=== PATIENT | female | born 1935 | race Caucasian/White ===

== ENCOUNTER → 2018-08-04 | Outpatient (CLI) | payer MEDICARE, BC, OTHER ==
--- NOTE | 2018-08-04 15:19 | BD ---
EXAMINATION TYPE: Axial Bone Density DATE OF EXAM: 08/04/2018 CLINICAL HISTORY: Osteopenia, M 85.9, Z 13.820 Height: 63 inches Weight: 142 FRAX RISK QUESTIONS: Alcohol (3 or more units per day): no Family History (Parent hip fracture): no Glucocorticoids (More than 3mos): no (Ex: prednisone, prednisolone, methylprednisolone, dexamethasone, and hydrocortisone). History of Fracture in Adulthood: no Secondary Osteoporosis: 1. Type 1 Diabetes: no 2. Hyperthyroidism: no 3. Menopause before 45: no 4. Malnutrition: no 5. Chronic liver disease: no Rheumatoid Arthritis: no Current Tobacco Use: no RISK FACTORS HISTORY OF: Family History of Osteoporosis: no Active: yes Diet low in dairy products/other sources of calcium: no Postmenopausal woman: yes Take estrogen and/or progesterone medications: no Lost more than 2 inches in height since high school: no Frequent falls: no Poor Health: no Hyperparathyroidism: no Adrenal Insufficiency: no MEDICATIONS: Prednisone or other steroids: no Thyroid Medications: no Osteoporosis Medications:no Additional Medications: heart meds, blood pressure ; vitamins Additional History: EXAM MEASUREMENTS: Bone mineral densitometry was performed using the [employer] System. Bone mineral density as measured about the Lumbar spine is: ----- L1-L4(G/cm2): 1.198 T Score Values are as follows: ----- L2: 0.3 ----- L3: 0.9 ----- L4: 0.4 ----- L1-L4: 0.1 Bone mineral density not previously done at this facility; done elsewhere Bone mineral density about the R hip (g/cm2): 0.816 Bone mineral density about the L hip (g/cm2): 0.840 T Score values are as follows: -----R Neck: -1.6 -----L Neck: -1.4 -----R Total: -1.0 -----L Total: -0.8 Bone mineral density not previously done at this facility; done elsewhere IMPRESSION: Osteopenia (T Score between -2.5 and -1). There is slightly increased risk of fracture and the patient may be considered for treatment. Re-Screen 2-5 years. NOTE: T-SCORE=SD OF THE YOUNG ADULT MEAN.
--- NOTE | 2018-08-06 13:25 | MM ---
Reason for exam: screening (asymptomatic). Last mammogram was performed 2 years and 2 months ago. History: Patient is postmenopausal. Physical Findings: A clinical breast exam by your physician is recommended on an annual basis and results should be correlated with mammographic findings. MG 3D Screening Mammo W/Cad Bilateral CC and MLO view(s) were taken. Prior study comparison: May 24, 2016, mammogram, performed at [facility]. January 24, 2015, mammogram, performed at [facility]. No significant changes when compared with prior studies. ASSESSMENT: Benign, BI-RAD 2 RECOMMENDATION: Routine screening mammogram of both breasts in 1 year.
== END | disposition home or self-care (01) ==
LOC: RADMAMWWP 13:06
PROVIDERS: ATTEND Obstetrics & Gynecology
DX: Z12.31 Encounter for screening mammogram for malignant neoplasm of breast (principal); M85.80 Other specified disorders of bone density and structure, unspecified site
CPT/HCPCS: 77063; 77067; 77080

== ENCOUNTER 2019-12-08 01:07 | Observation (INO) | payer MEDICARE, BC, OTHER ==
[2019-12-08] MEDS ORDERED: SODIUM CHLORIDE 0.9% 1,000 ML IV STA (01:33)
[2019-12-08] MEDS ORDERED: ASPIRIN 81 MG PO STA (01:33)
[2019-12-08] MEDS ORDERED: LABETALOL 5 MG/ML VIAL MDV IVP STA (01:47)
[2019-12-08 01:52] LABS: Basophils # (A) 0.1 k/uL (0-0.2); Basophils % (A) 2 %; Eosinophils # (A) 0.1 k/uL (0-0.7); Eosinophils % (A) 2 %; HCT 41.2 % (34.0-46.0); HGB 13.9 gm/dL (11.4-16.0); Lymphocytes # (A) 2.4 k/uL (1.0-4.8); Lymphocytes % (A) 36 %; MCH 31.9 pg (25.0-35.0); MCHC 33.7 g/dL (31.0-37.0); MCV 94.5 fL (80.0-100.0); Mean Platelet Volume 6.9; Monocytes # (A) 0.3 k/uL (0-1.0); Monocytes % (A) 5 %; Neutrophils # (A) 3.6 k/uL (1.3-7.7); Neutrophils % (A) 54 %; Platelet Count 271 k/uL (150-450); RBC 4.36 m/uL (3.80-5.40); RDW 12.5 % (11.5-15.5); WBC 6.7 k/uL (3.8-10.6)
--- NOTE | 2019-12-08 01:58 | ED ---
Chest Pain HPI - General Chief Complaint: Chest Pain Stated Complaint: Abd Pain Time Seen by Provider: 12/08/19 01:20 Source: patient, family, RN notes reviewed, old records reviewed Mode of arrival: ambulatory Limitations: physical limitation - History of Present Illness Initial Comments: This Patient is an 84-year-old female, who presents emergency Department with "a funny feeling in chest" intermittently for the past 2 days. Patient reports that it seems to be intermittent, denies any pain worse with taking a deep breath or associated shortness of breath. She states with rest and exertion she has had these symptosm and felt lightheaded. She denies any nausea or vomiting. Past medical history includes hypertension, liver disease and neurop athy. Patient's auto inspection specialist is Dr. Yost. Patient reports she has had some testing within the past year but unable to tell me exactly what tests she's had. She is here with her son-in-law. Patient reports that she did take her blood pressure medicine today but does arrive somewhat hypertensive blood pressure 180/97. She denies any headache, or significant dizziness at this time while in bed. - Related Data Home Medications Medication Instructions Recorded Confirmed Gabapentin [Neurontin] 100 mg PO TID 12/31/14 12/31/14 Losartan Potassium [Cozaar] 100 mg PO DAILY 12/31/14 12/31/14 Metoprolol Tartrate [Lopressor] 25 mg PO DAILY 12/31/14 12/31/14 cloNIDine HCL [Catapres] 0.1 mg PO BID 12/31/14 12/31/14 hydrALAZINE HCL 50 mg PO HS 12/31/14 12/31/14 hydrALAZINE HCL [Apresoline] 100 mg PO BID 12/31/14 12/31/14 Allergies Allergy/AdvReac Type Severity Reaction Status Date / Time No Known Allergies Allergy Verified 12/08/19 01:14 Review of Systems ROS Statement: Those systems with pertinent positive or pertinent negative responses have been documented in the HPI. ROS Other: All systems not noted in ROS Statement are negative. EKG Findings - EKG Comments: EKG Findings:: EKG performed at 1:21 AM shows normal sinus rhythm normal EKG. Ventricular rate of 70 bpm. Verbal 174 ms. QS zoroastrian is 88 ms. QT QTc is 44/[address] elevation or T-wave inversion. Past Medical History Past Medical History: Hypertension, Liver Disease Additional Past Medical History / Comment(s): neuropathy History of Any Multi-Drug Resistant Organisms: None Reported Past Surgical History: Orthopedic Surgery Additional Past Surgical History / Comment(s): bilateral knees Past Anesthesia/Blood Transfusion Reactions: No Reported Reaction Past Psychological History: No Psychological Hx Reported Smoking Status: Never smoker Past Alcohol Use History: None Reported Past Drug Use History: None Reported - Past Family History Mother Family Medical History: Myocardial Infarction ([place]) Additional Family Medical History / Comment(s): Pass d/t heart attack General Exam - General Exam Comments Initial Comments: 84-year-old female. Alert and oriented 3. Limitations: physical limitation General appearance: alert, in no apparent distress Head exam: Present: atraumatic, normocephalic, normal inspection Eye exam: Present: normal appearance ENT exam: Present: normal exam, mucous membranes moist Neck exam: Present: normal inspection. Absent: tenderness, meningismus, lymphadenopathy Respiratory exam: Present: normal lung sounds bilaterally. Absent: respiratory distress, wheezes, rales, rhonchi, stridor Cardiovascular Exam: Present: regular rate, normal rhythm, normal heart sounds. Absent: systolic murmur, diastolic murmur, rubs, gallop, clicks GI/Abdominal exam: Present: soft, normal bowel sounds. Absent: distended, tenderness, guarding, rebound, rigid Extremities exam: Present: normal inspection, full ROM, normal capillary refill. Absent: tenderness, pedal edema, joint swelling, calf tenderness Back exam: Present: normal inspection Neurological exam: Present: alert, oriented X3, CN II-XII intact Psychiatric exam: Present: normal affect, normal mood Skin exam: Present: warm, dry, intact, normal color. Absent: rash Course Vital Signs 12/08/19 12/08/19 12/08/19 01:10 01:48 02:09 Temperature 97.8 F Pulse Rate 86 66 68 Respiratory 18 18 18 Rate Blood Pressure 193/101 180/97 169/88 O2 Sat by Pulse 97 100 99 Oximetry 12/08/19 02:33 Temperature Pulse Rate 64 Respiratory 18 Rate Blood Pressure 162/87 O2 Sat by Pulse 97 Oximetry Chest Pain MDM - MDM 84-year-old female presents emergency room today with a "funny feeling in her chest, has been having symptoms for the past days intermittently with rest and exertion. Patient reports she's also been under stress after her . This time patient's EKG shows no acute changes. Troponin is unremarkable. She was quite hypertensive upon arrival and was given aspirin for her discomfort. She states that it still persisted, nitro was ordered as well. Patient did report some relief after this. Discussed the case with Dr. Mcneal discussed case with on-call sounds physician. Sledge the Patient for cardiac observation with consult to patient's auto inspection specialist Dr. Yost. Disposition Clinical Impression: Chest pain Disposition: ADMITTED IP TO THIS HOSP Condition: Stable Is patient prescribed a controlled substance at d/c from ED?: No Referrals: Nonstaff,Physician [REFERRING] - 1-2 days Time of Disposition: 03:28
[2019-12-08 02:02] LABS: Albumin 4.3 g/dL (3.5-5.0); Calcium 9.5 mg/dL (8.4-10.2); Magnesium 1.8 mg/dL (1.6-2.3); Potassium 3.9 mmol/L (3.5-5.1); Total Protein 7.2 g/dL (6.3-8.2)
[2019-12-08 02:06] LABS: Partial Thromboplastin Time 33.4 sec (22.0-30.0); Prothrombin Time 10.8 sec (9.0-12.0)
--- NOTE | 2019-12-08 02:24 | XR ---
EXAMINATION TYPE: XR chest 2V DATE OF EXAM: 12/08/2019 COMPARISON: 12/31/2014 HISTORY: Hypertension. Chest pain TECHNIQUE: 2 views FINDINGS: There is no heart failure nor confluent pneumonic infiltrate. Costophrenic angles are clear . There are chest leads. Bony thorax appears normal. Thoracic aorta is atheromatous and tortuous. IMPRESSION: No active cardiopulmonary disease. No change.
[2019-12-08] MEDS ORDERED: NITROGLYCERIN SL TABS 0.4 MG TAB SUBLINGUAL STA (03:22)
[2019-12-08] MEDS ORDERED: NITROGLYCERIN SL TABS 0.4 MG TAB SUBLINGUAL PRN (03:29)
[2019-12-08] MEDS ORDERED: MORPHINE SULFATE 4 MG/ML SYRINGE IV PRN (03:29)
--- NOTE | 2019-12-08 05:48 | P.HPIM ---
History of Present Illness H&P Date: 12/08/19 Chief Complaint: Chest pain The patient is a 84-year-old female with a past medical history of essential hypertension, liver disease, neuropathy who presents to the ER via private vehicle with her son-in-law complaining of a funny feeling in her chest. The patient describes nonradiating moderate substernal chest tightness that has been intermittent for the last 2 days, she associates her symptoms with exertion and has had episodes of lightheadedness, she denies headache, denies focal weakness denies slurred speech denies facial droop, she denies any diaphoresis, denies syncope. The patient reports that at her baseline she is able to ambulate unassisted but has difficulty walking a straight line, son-in-law mentions episodes of disorientation and forgetfulness as a patient has left the stove on at times, they deny any history of dementia or regular alcohol use. In the ER the patient had a comprehensive workup her CBC was normal electrolytes were unremarkable with exception of slightly elevated BUN at 21, troponin was less than 0.012 NT proBNP 297, EKG shows sinus mechanism without any acute ischemic changes, chest x-ray showed no acute cardiopulmonary disease and the patient and recommended for admission to rule out ACS Review of Systems Pertinent positives per HPI all other review of systems otherwise negative Past Medical History Past Medical History: Hypertension, Liver Disease Additional Past Medical History / Comment(s): neuropathy History of Any Multi-Drug Resistant Organisms: None Reported Past Surgical History: Orthopedic Surgery Additional Past Surgical History / Comment(s): bilateral knees Past Anesthesia/Blood Transfusion Reactions: No Reported Reaction Past Psychological History: No Psychological Hx Reported Smoking Status: Never smoker Past Alcohol Use History: None Reported Past Drug Use History: None Reported - Past Family History Mother Family Medical History: Myocardial Infarction ([place]) Additional Family Medical History / Comment(s): Pass d/t heart attack Medications and Allergies Home Medications Medication Instructions Recorded Confirmed Type Gabapentin [Neurontin] 100 mg PO TID 12/31/14 12/31/14 History Losartan Potassium [Cozaar] 100 mg PO DAILY 12/31/14 12/31/14 History Metoprolol Tartrate [Lopressor] 25 mg PO DAILY 12/31/14 12/31/14 History cloNIDine HCL [Catapres] 0.1 mg PO BID 12/31/14 12/31/14 History hydrALAZINE HCL 50 mg PO HS 12/31/14 12/31/14 History hydrALAZINE HCL [Apresoline] 100 mg PO BID 12/31/14 12/31/14 History Allergies Allergy/AdvReac Type Severity Reaction Status Date / Time No Known Allergies Allergy Verified 12/08/19 01:14 Physical Exam Vitals: Vital Signs Temp Pulse Resp BP Pulse Ox 12/08/19 04:00 65 16 143/87 97 12/08/19 03:36 164/92 12/08/19 03:29 66 16 166/103 97 12/08/19 02:33 64 18 162/87 97 12/08/19 02:09 68 18 169/88 99 12/08/19 01:48 66 18 180/97 100 12/08/19 01:10 97.8 F 86 18 193/101 97 Intake and Output 12/07/19 12/07/19 12/08/19 14:59 22:59 06:59 Other: Weight 66.406 kg Constitutional: No acute distress, conversant, pleasant Eyes: Anicteric sclerae, moist conjunctiva, no lid-lag, PERRLA ENMT: NC/AT,Oropharynx clear, no erythema, exudates Neck:Supple, FROM, no masses, or JVD, No carotid bruits; No thyromegaly Lungs: Clear to auscultation, Clear to percussion, Normal respiratory effort, no accessory muscle use Cardiovascular: Heart regular in rate and rhythm, No murmurs, gallops, or rubs no peripheral edema Abdominal: Soft Nontender, nom distended, no guarding, no rebound or rigidity, Normoactive bowel sounds No hepatomegaly, No splenomegaly, No palpable mass No abdominal wall hernia noted Skin: Normal temperature, tone, texture, turgor, No induration No subcutaneous nodules, No rash, lesions, No ulcers Extremities:No digital cyanosis No clubbing, Pedal pulses intact and symmetrical Radial pulses intact and symmetrical Normal gait and station, No calf tenderness Psychiatric: Alert and oriented to person, place and time, Appropriate affect Intact judgement Neuro: Muscles Strength 5/5 in all 4 extremities, Sensation to light touch grossly present throughout, Cranial nerves II-XII grossly intact. No focal sensory deficits Results CBC & Chem 7: 12/08/19 01:40 01/22/20 01:40 Labs: Abnormal Lab Results - Last 24 Hours (Table) 12/08/19 12/08/19 Range/Units 01:40 01:40 APTT 33.4 H (22.0-30.0) sec BUN 21 H (7-17) mg/dL Assessment and Plan Assessment: Chest pain uncontrolled hypertension Neuropathy History of autoimmune hepatitis Plan: The patient patient observation anticipated less than 2 midnight stay with chest pain with need to rule out ACS initial workup so far as been negative will continue to trend her troponins, order echocardiogram, tsh, monitor on threat monitoring analyst her blood pressure. continue chest pain protocol patient was given aspirin and IV labetalol for blood pressure along with nitroglycerin. Awaiting to reconcile her medications will use hydralazine PRN. Cardiology consultation. Continue to monitor clinical course CODE STATUS: Full code Anticipated discharge place: Home Prophylaxis : Heparin and SCDs and PPIs
[2019-12-08] MEDS ORDERED: hydrALAZINE HCL 20 MG/ML 1 ML VIAL IVP PRN (06:00)
[2019-12-08] MEDS ORDERED: hydrALAZINE HCL 50 MG TAB PO SCH (09:00)
[2019-12-08] MEDS ORDERED: cloNIDine HCL 0.1 MG TAB PO SCH (09:00)
[2019-12-08] MEDS: LOSARTAN 50 MG TAB PO SCH (09:49)
[2019-12-08] MEDS: PANTOPRAZOLE 40 MG TABLET PO SCH (09:50)
[2019-12-08] MEDS: HEPARIN SODIUM,PORCINE 5,000 UNIT/ML 1 ML VIAL SQ SCH ×2 (09:51→20:58)
[2019-12-08] MEDS ORDERED: cloNIDine HCL 0.1 MG TAB PO STA (10:32)
[2019-12-08] MEDS ORDERED: HYDROCHLOROTHIAZIDE 12.5 MG CAP PO SCH ×2 (10:45)
--- NOTE | 2019-12-08 10:45 | P.CRDCN ---
History of Present Illness History of present illness: HISTORY OF PRESENTING ILLNESS This is a pleasant 84-year-old female past medical history significant for hypertension. She follows in the office with Dr. Yost. We have been asked to see in consultation for chest pain. She states for the previous 2 days she has been experiencing intermittent discomfort in the chest. She states it is a squeezing tight sensation. It is exacerbated by activity or exertion. She states she has been under significant amount of stress in the previous 2 days as her furnace is not working properly and she has also been stressing out about having to do her taxes. She lost her last year and this will be the first year she's having to do this all by herself. She denies radiation of any pain to the arm, back, neck or jaw. She denies any associated shortness of breath, dizziness, nausea, vomiting, diaphoresis or palpitations. Blood pressure on arrival is 193/101 with a heart rate of 86. She has struggled with her blood pressure quite frequently however she states her blood pressures at home are typically well-controlled. DIAGNOSTICS EKG reveals sinus mechanism with no acute ST or T wave abnormalities noted. Telemetry tracings unremarkable. Chest xray negative for an acute cardiopulmonary process. Laboratory reviewed, CBC unremarkable, sodium 138, potassium 3.9, creatinine 0.82, cardiac enzymes negative 2, NT proBNP 297 and TSH 4.34. Current cardiac medications include hydralazine 100 mg in the morning and 150 mg at bedtime, clonidine 0.1 mg daily, extra 25 mg daily, losartan 100 mg daily and hydrochlorothiazide on Friday and Friday. Most recent stress test performed in the office April 2019 with a Lexiscan stress test revealing ejection fraction of 60% with no reversible ischemia. Most recent echocardiogram obtained in the office January 2018 reveals preserved LV systolic function with ejection fraction 55%, moderate diastolic dysfunction and mildly elevated PA pressures. REVIEW OF SYSTEMS At the time of my exam: CONSTITUTIONAL: Denies fever or chills. CARDIOVASCULAR: Denies chest pain, shortness of breath, orthopnea, PND or palpitations. RESPIRATORY: Denies cough. GASTROINTESTINAL: Denies abdominal pain, diarrhea, constipation, nausea or vomiting. MUSCULOSKELETAL: Denies myalgias. NEUROLOGIC: Denies numbness, tingling or weakness. ENDOCRINE: Denies fatigue, weight change, polydipsia or polyurina. GENITOURINARY: Denies burning, hematuria or urgency with micturation. HEMATOLOGIC: Denies history of anemia or bleeding. PHYSICAL EXAMINATION Blood pressure 167/95 heart rate 64 afebrile and maintaining oxygen saturation on room air. CONSTITUTIONAL: No apparent distress. HEENT: Head is normocephalic. Pupils are equal, round. Sclerae anicteric. Mucous membranes of the mouth are moist. No JVD. No carotid bruit. CHEST EXAMINATION: Lungs are clear to auscultation. No chest wall tenderness is noted on palpation or with deep breathing. HEART EXAMINATION: Regular rate and rhythm. S1, S2 heard. No murmurs, gallops or rub. ABDOMEN: Soft, nontender. Positive bowel sounds. EXTREMITIES: 2+ peripheral pulses, no lower extremity edema and no calf tenderness. NEUROLOGIC EXAMINATION: Patient is awake, alert and oriented x3. ASSESSMENT Chest pain, atypical. An acute coronary event has been ruled out. Hypertension, uncontrolled PLAN An acute coronary event has been ruled out. Home medication list differs from office medications list that was just updated 11/02/2019. Increase clonidine to 0.2 mg BID. Hydralazine should be 100 mg TID, losartan 100 mg daily and hydrochlorothiazide 12.5 mg MWF. Medications list has been updated appropriately. Continue to monitor blood pressures on appropriate regimen. Echo has been ordered and will be reviewed. Thank you kindly for this consultation. Nurse Practitioner note has been reviewed, I agree with a documented findings and plan of care. Patient was seen and examined. Past Medical History Past Medical History: Hypertension, Liver Disease Additional Past Medical History / Comment(s): neuropathy History of Any Multi-Drug Resistant Organisms: None Reported Past Surgical History: Orthopedic Surgery Additional Past Surgical History / Comment(s): bilateral knees Past Anesthesia/Blood Transfusion Reactions: No Reported Reaction Past Psychological History: No Psychological Hx Reported Smoking Status: Never smoker Past Alcohol Use History: None Reported Past Drug Use History: None Reported - Past Family History Mother Family Medical History: Myocardial Infarction ([place]) Additional Family Medical History / Comment(s): Pass d/t heart attack Medications and Allergies Home Medications Medication Instructions Recorded Confirmed Type Losartan Potassium [Cozaar] 100 mg PO DAILY 12/31/14 12/08/19 History Metoprolol Tartrate [Lopressor] 25 mg PO DAILY 12/31/14 12/08/19 History cloNIDine HCL [Catapres] 0.1 mg PO DAILY 12/31/14 12/08/19 History hydrALAZINE HCL 50 mg PO HS 12/31/14 12/08/19 History hydrALAZINE HCL [Apresoline] 100 mg PO BID 12/31/14 12/08/19 History Hydrochlorothiazide 12.5 mg PO MOWEFR 12/08/19 12/08/19 History Allergies Allergy/AdvReac Type Severity Reaction Status Date / Time No Known Allergies Allergy Verified 12/08/19 08:24 Physical Exam Vitals: Vital Signs Temp Pulse Pulse Resp BP BP Pulse Ox 12/08/19 06:35 64 18 12/08/19 05:45 97.8 F 64 18 167/95 96 12/08/19 05:20 63 20 97 12/08/19 05:10 64 13 98 12/08/19 05:05 66 18 150/85 96 12/08/19 05:00 71 16 150/85 98 12/08/19 04:50 66 18 150/85 97 12/08/19 04:40 63 12 150/85 97 12/08/19 04:30 62 16 143/87 96 12/08/19 04:20 60 16 143/87 97 12/08/19 04:10 61 16 143/87 97 12/08/19 04:00 63 16 164/92 96 12/08/19 03:50 64 13 164/92 95 12/08/19 03:40 75 13 164/92 97 12/08/19 03:36 164/92 12/08/19 03:30 61 16 166/103 96 12/08/19 03:29 66 16 166/103 97 12/08/19 03:20 64 18 12/08/19 03:00 181/92 12/08/19 02:50 67 16 162/87 12/08/19 02:40 68 12 162/87 98 12/08/19 02:33 64 18 162/87 97 12/08/19 02:30 62 18 169/88 97 12/08/19 02:20 61 16 169/88 98 12/08/19 02:10 66 12 169/88 98 12/08/19 02:09 68 18 169/88 99 12/08/19 02:00 65 16 180/97 97 12/08/19 01:50 70 16 180/97 01/22/20 01:48 66 18 180/97 100 12/08/19 01:40 69 14 184/96 100 12/08/19 01:30 79 22 184/96 99 12/08/19 01:20 99 12/08/19 01:10 97.8 F 86 18 193/101 97 Intake and Output 12/07/19 12/08/19 12/08/19 22:59 06:59 14:59 Other: # Voids 1 Weight 66.406 kg Results 12/08/19 01:40 12/08/19 01:40 Cardiac Enzymes 12/08/19 12/08/19 Range/Units 01:40 01:40 AST 35 (14-36) U/L Troponin I <0.012 (0.000-0.034) ng/mL Coagulation 12/08/19 Range/Units 01:40 PT 10.8 (9.0-12.0) sec APTT 33.4 H (22.0-30.0) sec CBC 12/08/19 Range/Units 01:40 WBC 6.7 (3.8-10.6) k/uL RBC 4.36 (3.80-5.40) m/uL Hgb 13.9 (11.4-16.0) gm/dL Hct 41.2 (34.0-46.0) % Plt Count 271 (150-450) k/uL Comprehensive Metabolic Panel 12/08/19 Range/Units 01:40 Sodium 138 (137-145) mmol/L Potassium 3.9 (3.5-5.1) mmol/L Chloride 103 (98-107) mmol/L Carbon Dioxide 24 (22-30) mmol/L BUN 21 H (7-17) mg/dL Creatinine 0.82 (0.52-1.04) mg/dL Glucose 99 (74-99) mg/dL Calcium 9.5 (8.4-10.2) mg/dL AST 35 (14-36) U/L ALT 15 (4-34) U/L Alkaline Phosphatase 74 (38-126) U/L Total Protein 7.2 (6.3-8.2) g/dL Albumin 4.3 (3.5-5.0) g/dL Current Medications Generic Name Dose Route Start Last Admin Trade Name Freq PRN Reason Stop Dose Admin Aspirin 325 mg 01/23/20 09:00 Aspirin PO DAILY [facility] Heparin Sodium (Porcine) 5,000 unit 12/08/19 09:00 Heparin SQ Q12HR [facility] Morphine Sulfate 4 mg 12/08/19 03:29 Morphine Sulfate (Inj) IV Q5M PRN Chest Pain Nitroglycerin 0.4 mg 12/08/19 03:29 Nitrostat SUBLINGUAL Q5M PRN Chest Pain Pantoprazole Sodium 40 mg 12/08/19 07:30 Protonix PO AC-BRKFST [facility] Intake and Output 12/07/19 12/08/19 12/08/19 22:59 06:59 14:59 Other: # Voids 1 Weight 66.406 kg 12/08/19 01:40 12/08/19 01:40
[2019-12-08 11:07] LABS: Cholesterol 192 mg/dL (<200); HDL Cholesterol 50 mg/dL (40-60); LDL Cholesterol,Calculated 125 mg/dL (0-99); Triglycerides 87 mg/dL (<150)
[2019-12-08] MEDS: METOPROLOL TARTRATE 25 MG TAB PO SCH (11:18)
--- NOTE | 2019-12-08 11:48 | ECHOF ---
Referral Reason:chest pain MEASUREMENTS -------- HEIGHT: 160.0 cm WEIGHT: 66.2 kg BP: 167/95 RVIDd: 2.9 cm (< 3.3) IVSd: 1.1 cm (0.6 - 1.1) LVIDd: 3.8 cm (3.9 - 5.3) LVPWd: 1.3 cm (0.6 - 1.1) IVSs: 1.2 cm LVIDs: 2.9 cm LVPWs: 1.5 cm LA Diam: 4.4 cm (2.7 - 3.8) LAESV Index (A-L): 33.23 ml/m Ao Diam: 2.8 cm (2.0 - 3.7) AV Cusp: 1.4 cm (1.5 - 2.6) LA Diam: 3.6 cm (2.7 - 3.8) MV EXCURSION: 19.436 mm (> 18.000) MV EF SLOPE: 71 mm/s (70 - 150) EPSS: 0.2 cm MV E Prince: 0.52 m/s MV DecT: 206 ms MV A Prince: 0.69 m/s MV E/A Ratio: 0.76 RAP: 5.00 mmHg RVSP: 32.48 mmHg FINDINGS -------- Sinus rhythm. This was a technically good study. The left ventricular size is normal. There is mild concentric left ventricular hypertrophy. Overa ll left ventricular systolic function is normal with, an EF between 55 - 60 %. The diastolic fillin g pattern is normal for the age of the patient 10.88. The right ventricle is normal in size. The left atrium is mildly dilated. LA is midly dilated 29-33ml/m2. The right atrial size is normal. There is mild aortic valve sclerosis. There is no evidence of aortic regurgitation. Mild mitral annular calcification present. Mild mitral regurgitation is present. Mild tricuspid regurgitation present. Right ventricular systolic pressure is normal at < 35 mmHg. There is no evidence of pulmonary hypertension. There is no pulmonic regurgitation present. The aortic root size is normal. Echo free space represents a pericardial fat pad. CONCLUSIONS -------- 1. Sinus rhythm. 2. This was a technically good study. 3. The left ventricular size is normal. 4. There is mild concentric left ventricular hypertrophy. 5. Overall left ventricular systolic function is normal with, an EF between 55 - 60 %. 6. The diastolic filling pattern is normal for the age of the patient 10.88 7. The right ventricle is normal in size. 8. The left atrium is mildly dilated. 9. LA is midly dilated 29-33ml/m2. 10. The right atrial size is normal. 11. There is mild aortic valve sclerosis. 12. Mild mitral annular calcification present. 13. Mild mitral regurgitation is present. 14. Mild tricuspid regurgitation present. 15. Right ventricular systolic pressure is normal at < 35 mmHg. 16. There is no evidence of pulmonary hypertension. 17. There is no pulmonic regurgitation present. 18. The aortic root size is normal. 19. Echo free space represents a pericardial fat pad. RESOURCE COORDINATOR: Amanda Ngo RDCS
--- NOTE | 2019-12-08 12:27 | P.PN ---
Subjective Progress Note Date: 12/08/19 The patient is an 84-year-old female with a PMH of hypertension who presented to the ED with complaints of a strange sensation in her chest, occurring intermittently, tightening in nature, no unable to quantify. The patient reported that the pain was ongoing for 2 days prior to presentation. The patient reported that she has been having quite a bit of stress this year since her 8 months, and she feels that the anxiety of all of the paperwork associated with it and increased work work around the house may have been contributing to her symptoms. The patient had undergone an extensive evaluation in the emergency room with a troponin of less than 0.012, BNP of 297, EKG showing normal sinus rhythm at [address]/T-wave changes noted, and CXR being unremarkable. The patient was admitted under observation for evaluation by cardiology. The patient underwent an echocardiogram which revealed an LVEF of 55-60% along with mild mitral regurgitation. Cardiology evaluated the patient and noted that an acute coronary event had been ruled out. Cardiology also made adjustments to the patient's antihypertensives since there were discrepencies between her home med-list and the patient's list from the Network Infrastructure Architect's office. The patient was seen and evaluated at the bedside on 12/08. She reported feeling well and noted that she no longer has her chest discomfort or any additional symptoms. She reports feeling is that she is back to her baseline. She denied shortness of breath, nausea, vomiting, fever, chills, or abdominal pain. Objective - Vital Signs Vital signs: Vital Signs Temp 97.6 F 12/08/19 11:13 Pulse 67 12/08/19 12:00 Resp 14 12/08/19 12:00 BP 116/69 12/08/19 11:13 Pulse Ox 96 12/08/19 11:13 Intake & Output 12/07/19 12/08/19 12/08/19 18:59 06:59 18:59 Weight 66.406 kg Other: Voiding Method Toilet # Voids 1 1 - Exam General: Non-toxic, in no acute distress, appears stated age, normal weight HEENT: NC/AT, anicteric sclerae, moist conjunctiva, no lid-lag, PERRLA Cardiovascular: S1/S2 wnl, no murmurs, rubs, or gallops Lungs: Clear to auscultation, normal respiratory effort, no accessory muscle use Abdominal: Soft, non-tender, non-distended, no guarding, rebound, or rigidity Skin: Warm, dry Extremities: No edema or contractures Psychiatric: Alert and oriented to person, place and time, appropriate affect Neuro: CN II-XII grossly intact, Strength 5/5 in all 4 extremities, Speech intact, Sensation to light touch grossly intact throughout - Labs CBC & Chem 7: 12/08/19 01:40 12/08/19 01:40 Labs: Abnormal Lab Results - Last 24 Hours (Table) 12/08/19 12/08/19 12/08/19 Range/Units 01:40 01:40 01:40 APTT 33.4 H (22.0-30.0) sec BUN 21 H (7-17) mg/dL LDL Cholesterol, Calc 125 H (0-99) mg/dL Assessment and Plan Plan: Atypical chest pain -Acute coronary event ruled out -Cardiology recommendations appreciated -Echocardiogram reviewed, troponins negative 3 Hypertension -Patient's antihypertensives with major adjustments by cardiology -The patient's blood pressure dropped from 190s on admission to 116 systolic ea rlier today -Continue to monitor the patient for another 24 hours Chronic conditions: Neuropathy; Auto-immune hepatitis DVT prophylaxis -IPCDs Discussed with: Patient Anticipated discharge date: 12/[address]: Home A total of 35 minutes was spent on the care of this complex patient more than 50% of the time was spent in counseling and care coordination.
[2019-12-08] MEDS: hydrALAZINE HCL 50 MG TAB PO SCH ×3 (16:39→21:03)
[2019-12-08] MEDS ORDERED: cloNIDine HCL 0.2 MG TAB PO SCH (21:00)
[2019-12-08] MEDS ORDERED: ACETAMINOPHEN TAB 325 MG TAB PO PRN (22:59)
[2019-12-09 07:52] VITALS: RESP 18
[2019-12-09] MEDS: HEPARIN SODIUM,PORCINE 5,000 UNIT/ML 1 ML VIAL SQ SCH (08:32)
[2019-12-09] MEDS: PANTOPRAZOLE 40 MG TABLET PO SCH (08:59)
[2019-12-09] MEDS ORDERED: ASPIRIN 325 MG TAB PO SCH (09:00)
[2019-12-09] MEDS ORDERED: ASPIRIN 81 MG PO SCH (09:00)
[2019-12-09] MEDS: hydrALAZINE HCL 50 MG TAB PO SCH (09:01)
[2019-12-09] MEDS: METOPROLOL TARTRATE 25 MG TAB PO SCH (09:02)
[2019-12-09] MEDS: LOSARTAN 50 MG TAB PO SCH (09:02)
--- NOTE | 2019-12-09 10:23 | P.DS ---
Providers Date of admission: 12/08/19 04:18 Expected date of discharge: 12/09/19 Attending physician: Henri Lorenzo MD Consults: 12/08/19 03:29 Consult Physician Urgent Consulting Provider: Daja Yost Consult Reason/Comments: chest pain Do you want consulting provider notified?: Yes Primary care physician: [facility] Course: The patient is an 84-year-old female with a PMH of hypertension who presented to the ED with complaints of a strange sensation in her chest, occurring intermittently, tightening in nature, no unable to quantify. The patient reported that the pain was ongoing for 2 days prior to presentation. The patient reported that she has been having quite a bit of stress this year since her 8 months, and she feels that the anxiety of all of the paperwork associated with it and increased work work around the house may have been contributing to her symptoms. The patient had undergone an extensive evaluation in the emergency room with a troponin of less than 0.012, BNP of 297, EKG showing normal sinus rhythm at [address]/T-wave changes noted, and CXR being unremarkable. The patient was admitted under observation for evaluation by cardiology. The patient underwent an echocardiogram which revealed an LVEF of 55-60% along with mild mitral regurgitation. Cardiology evaluated the patient and noted that an acute coronary event had been ruled out. Cardiology also made adjustments to the patient's antihypertensives since there were discrepencies between her home med-list and the patient's list from the C ardiologist's office. Troponins were less than 0.0123 with EKG showing normal sinus rhythm. Cardiology adjusted her antihypertensive medication to clonidine 0.2 mg by mouth twice a day, hydralazine 100 mg by mouth 3 times a day, losartan 100 mg by mouth daily, hydrochlorothiazide 12.5 mg by mouth Friday and Friday. Clonidine was discontinued by cardiology prior to discharge. Blood p ressure was monitored overnight and blood pressure on discharge was 122/79. Patient was seen and examined. No acute events overnight. Patient denies any chest pain, shortness breath or palpitations. No nausea or vomiting. No fever or chills. Son-in-law at bedside. Son-in-law states that his [id number] at times forgets to take her medication and he is requesting a list of her medications in order to make sure that she is taking them. General: [non toxic], [no distress], [appears at stated age] Derm: [warm], [dry] Head: [atraumatic], [normocephalic], [symmetric] Eyes: [EOMI], [no lid lag], [anicteric sclera] Mouth: [no lip lesion], [mucus membranes moist] Cardiovascular: [S1S2 reg], [no murmur], [positive DP pulse bilateral], Lungs: [CTA bilateral], [no rhonchi, no rales] , [no accessory muscle use] Abdominal: [soft], [ nontender to palpation], [no guarding], [no appreciable organomegaly] Ext: [no gross muscle atrophy], [no edema], [no contractures] Neuro: [no focal neuro deficits] Psych: [Alert], [oriented], [appropriate affect] Atypical chest pain Hypertension Dyslipidemia ACS ruled out. Echocardiogram shows EF 55-60% with mild concentric LVH. Plans: Continue aspirin. Will start Lipitor. Resume beta lisa. Follow cardiology in the outpatient setting. BP this morning 122/79. Plans: Clonidine discontinued. Continue hydralazine, hydrochlorothiazide, losartan, metoprolol. Monitor vitals, adjust medications as necessary. LDL 125. Plans: We'll start low-dose Lipitor. [Patient admitted for chest pain. ACS ruled out. Blood pressure within normal limits. Chest pain-free this morning. Plans to DC home with follow-up cardiology within 1 week.] Pertinent Studies: Chest x-ray, echocardiogram Patient Condition at Discharge: Stable Plan - Discharge Summary Discharge Rx Participant: No New Discharge Prescriptions: New Aspirin 81 mg PO DAILY #30 chew Losartan [Cozaar] 100 mg PO DAILY #30 tab Hydrochlorothiazide [Hydrodiuril] 12.5 mg PO MOWEFR #12 cap Atorvastatin Calcium [Lipitor] 10 mg PO HS #30 tab Metoprolol Tartrate [Lopressor] 25 mg PO DAILY #30 tab hydrALAZINE HCL [Apresoline] 100 mg PO TID #90 tab Discontinued hydrALAZINE HCL [Apresoline] 100 mg PO BID cloNIDine HCL [Catapres] 0.1 mg PO DAILY Metoprolol Tartrate [Lopressor] 25 mg PO DAILY Losartan Potassium [Cozaar] 100 mg PO DAILY hydrALAZINE HCL 50 mg PO HS Hydrochlorothiazide 12.5 mg PO MOWEFR Discharge Medication List Aspirin 81 mg PO DAILY #30 chew 12/09/19 [Rx] Atorvastatin Calcium [Lipitor] 10 mg PO HS #30 tab 12/09/19 [Rx] Hydrochlorothiazide [Hydrodiuril] 12.5 mg PO MOWEFR #12 cap 12/09/19 [Rx] Losartan [Cozaar] 100 mg PO DAILY #30 tab 12/09/19 [Rx] Metoprolol Tartrate [Lopressor] 25 mg PO DAILY #30 tab 12/09/19 [Rx] hydrALAZINE HCL [Apresoline] 100 mg PO TID #90 tab 12/09/19 [Rx] Follow up Appointment(s)/Referral(s): Nonstaff,Physician [REFERRING] - 1-2 days Jovana Rainey MD [STAFF PHYSICIAN] - 1 Week Activity/Diet/Wound Care/Special Instructions: Diet: Low-salt Follow-up PCP within 3 days of discharge. Follow-up cardiology within 1 week of discharge. Please take all medications as advised. Come back to the ED or call 911 for worsening chest pain, shortness of breath, palpitations or dizziness. Discharge Disposition: HOME SELF-CARE
[2019-12-09 11:10] VITALS: BP 150/80; PULSE 64; TEMP 97.7
--- NOTE | 2019-12-09 12:20 | P.PN ---
Subjective HISTORY OF PRESENTING ILLNESS This is a pleasant 84-year-old female past medical history significant for hypertension. She follows in the office with Dr. Yost. She is seen and examined sitting up in bed in no acute distress. She denies any further symptoms of chest pain. She has been up ambulating in the halls with some assistance as she feels somewhat off balance. Blood pressures have been controlled on current regimen. Clonidine and hydrochlorothiazide were held yesterday. This morning reading was 122/79 and repeat at 1100 was 150/80. PHYSICAL EXAMINATION CONSTITUTIONAL: No apparent distress. HEENT: Head is normocephalic. Pupils are equal, round. Sclerae anicteric. Mucous membranes of the mouth are moist. No JVD. No carotid bruit. CHEST EXAMINATION: Lungs are clear to auscultation. No chest wall tenderness is noted on palpation or with deep breathing. HEART EXAMINATION: Regular rate and rhythm. S1, S2 heard. No murmurs, gallops or rub. EXTREMITIES: 2+ peripheral pulses, no lower extremity edema and no calf tendern ess. ASSESSMENT Chest pain, atypical. An acute coronary event has been ruled out. Hypertension, uncontrolled PLAN Recommend PT/OT evaluation and possible home care assistance with visiting nurse to assist with setting up medications and checking blood pressures at home. Stable for discharge from a cardiac perspective. Follow up with Dr. Yost in 2 weeks. Nurse Practitioner note has been reviewed, I agree with a documented findings and plan of care. Patient was seen and examined. Objective - Vital Signs Vital signs: Vital Signs Temp 97.7 F 12/09/19 11:08 Pulse 64 12/09/19 11:08 Resp 18 12/09/19 11:08 BP 150/80 12/09/19 11:08 Pulse Ox 97 12/09/19 11:08 Intake & Output 12/08/19 12/09/19 12/09/19 18:59 06:59 18:59 Intake Total 240 Balance 240 Intake: Oral 240 Other: Voiding Method Toilet Toilet Toilet # Voids 4 1 - Labs CBC & Chem 7: 12/08/19 01:40 12/08/19 01:40
[2019-12-10] MEDS ORDERED: HYDROCHLOROTHIAZIDE 12.5 MG CAP PO SCH (10:45)
== END 2019-12-09 13:20 | disposition home or self-care (01) ==
LOC: EC 01:07 → 1SOBS 04:18
PROVIDERS: ADMIT Family Medicine; ATTEND Family Medicine
DX: R07.89 Other chest pain (principal); I10 Essential (primary) hypertension; E78.5 Hyperlipidemia, unspecified; I08.3 Combined rheumatic disorders of mitral, aortic and tricuspid valves; G62.9 Polyneuropathy, unspecified; K75.4 Autoimmune hepatitis; Z79.899 Other long term (current) drug therapy; Z98.890 Other specified postprocedural states; Z82.49 Family history of ischemic heart disease and other diseases of the circulatory system
CPT/HCPCS: 96360; 96361; 99285; 36415; 93005; 93306; 97162; 97166; 92523; 83880; 80061; 80053; 84443; 82150; 83690; 83735; 84484; 85025; 85610; 85730; 71046; G0378 ×2

== ENCOUNTER → 2021-08-08 | Outpatient (CLI) | payer MEDICARE, BC, OTHER ==
--- NOTE | 2021-08-08 15:23 | US ---
EXAMINATION TYPE: US carotid duplex BILAT DATE OF EXAM: 08/08/2021 COMPARISON: NONE CLINICAL HISTORY: 86-year-old female R09.89 CAROTID BRUIT. TECHNIQUE: Carotid duplex ultrasound examination. Indirect Doppler criteria was utilized. FINDINGS: EXAM MEASUREMENTS: RIGHT: Peak Systolic Velocity (PSV) cm/sec ----- Right CCA: 89.5 ----- Right ICA: 76.3 ----- Right ECA: 76.2 ICA/CCA ratio: 0.9 RIGHT: End Diastole cm/sec ----- Right CCA: 21.2 ----- Right ICA: 25.8 ----- Right ECA: 8.9 LEFT: Peak Systolic Velocity (PSV) cm/sec ----- Left CCA: 77.9 ----- Left ICA: 101.6 ----- Left ECA: 56.6 ICA/CCA ratio: 1.3 LEFT: End Diastole cm/sec ----- Left CCA: 17.5 ----- Left ICA: 32.1 ----- Left ECA: 9.5 VERTEBRALS (direction of flow): Right Vertebral: Antegrade Left Vertebral: Antegrade Rhythm: Normal Employee Benefits Manager notes: Bilateral [id number] atherosclerotic plaque seen in bulbs. No significant s tenosis seen IMPRESSION: No hemodynamically significant internal carotid artery stenosis on either side. Criteria for Assigning % of Stenosis / Diameter reduction (Estimation based on the indirect measurements of the internal carotid artery velocities (ICA PSV). 1. Normal (no stenosis)=ICA PSV < 125 cm/s: ratio < 2.0: ICA EDV<40 cm/s. 2. Less than 50% stenosis=ICA PSV < 125 cm/s: ratio < 2.0: ICA EDV<40 cm/s. 3. 50 to 69% stenosis=ICA PSV of 125 to 230 cm/s: ration 2.0 ? 4.0: ICA EDV 40-100 cm/s. 4. Greater than 70% stenosis to near occlusion= ICA PSV > 230 cm/s: ratio > 4.0: ICA EDV > 100 cm/s. 5. Near occlusion= ICA PSV velocities may be low or undetectable: variable ratio and ICA EDV. 6. Total occlusion=unable to detect flow.
--- NOTE | 2021-08-09 12:16 | ECHOF ---
Referral Reason: MEASUREMENTS -------- HEIGHT: 165.1 cm WEIGHT: 63.5 kg BP: RVIDd: 3.2 cm (< 3.3) IVSd: 1.2 cm (0.6 - 1.1) LVIDd: 4.1 cm (3.9 - 5.3) LVPWd: 1.3 cm (0.6 - 1.1) IVSs: 1.6 cm LVIDs: 2.9 cm LVPWs: 1.6 cm LAESV Index (A-L): 27.37 ml/m Ao Diam: 2.8 cm (2.0 - 3.7) AV Cusp: 1.6 cm (1.5 - 2.6) LA Diam: 3.6 cm (2.7 - 3.8) MV EXCURSION: 16.074 mm (> 18.000) MV EF SLOPE: 92 mm/s (70 - 150) EPSS: 0.5 cm MV E Prince: 0.81 m/s MV DecT: 230 ms MV A Prince: 1.07 m/s MV E/A Ratio: 0.76 RAP: 5.00 mmHg RVSP: 35.25 mmHg FINDINGS -------- Sinus rhythm. This was a technically adequate study. The left ventricular size is normal. There is mild concentric left ventricular hypertrophy. Overa ll left ventricular systolic function is normal with, an EF between 55 - 60 %. The diastolic fillin g pattern is normal for the age of the patient 15.64. The right ventricle is normal in size. Normal LA size by volume 22+/-6 ml/m2. The right atrial size is normal. Interatrial and interventricular septum intact. Aortic valve is trileaflet and is mildly thickened. There is no evidence of aortic regurgitation. There is no evidence of aortic stenosis. Mild mitral annular calcification present. Mild mitral regurgitation is present. The tricuspid valve appears structurally normal. Mild tricuspid regurgitation present. There is m ild pulmonary hypertension. The right ventricular systolic pressure, as measured by Doppler, is 35. 25mmHg. There is no pulmonic regurgitation present. The aortic root size is normal. Normal inferior vena cava with normal inspiratory collapse consistent with estimated right atrial pre ssure of 5 mmHg. There is no pericardial effusion. CONCLUSIONS -------- 1. There is mild concentric left ventricular hypertrophy. 2. Overall left ventricular systolic function is normal with, an EF between 55 - 60 %. 3. Normal LA size by volume 22+/-6 ml/m2. 4. Aortic valve is trileaflet and is mildly thickened. 5. Mild mitral regurgitation is present. 6. Mild tricuspid regurgitation present. 7. There is mild pulmonary hypertension. FRAMING MACHINE TENDER: Bronwyn Jorge RDCS
== END | disposition home or self-care (01) ==
LOC: RADUSWWP 10:48
PROVIDERS: ATTEND Family Medicine
DX: R09.89 Other specified symptoms and signs involving the circulatory and respiratory systems (principal); I08.8 Other rheumatic multiple valve diseases; I27.20 Pulmonary hypertension, unspecified
CPT/HCPCS: 93306; 93880

== ENCOUNTER 2021-10-03 07:52 | Emergency (ER) | payer MEDICARE, BC, OTHER ==
[2021-10-03 08:05] VITALS: RESP 18; TEMP 98.3
--- NOTE | 2021-10-03 08:36 | ED ---
General Adult HPI - General Chief complaint: Headache Stated complaint: Ringing in ears Time Seen by Provider: 10/03/21 08:11 Source: patient, family Mode of arrival: wheelchair Limitations: no limitations - History of Present Illness Initial comments: Dictation was produced using [employer] dictation software. please excuse any grammatical, word or spelling errors. Chief Complaint: 86-year-old female presents emergency department for chief complaint of ringing in her ears. History of Present Illness: Patient is an 86-year-old female she has past medical history of hypertension, dyslipidemia patient presents to the emergency department for episodic ringing in her ears. She went to the [facility] approximately one week ago and was evaluated for the same complaint. She states she is here today because the ringing in her ears is happening. She states that it only happens at night when she lays down. She states the ringing goes across her head. Denies any symptoms currently at this point. She has not seen her primary care doctor regarding this. Nausea vomiting. No abdominal pain or chest pain. No shortness of breath. No recent changes in her medications. She has seen an ENT physician several years ago. Denies any ear pain. No dizziness. The ROS documented in this emergency department record has been reviewed and confirmed by me. Those systems with pertinent positive or negative responses have been documented in the HPI. All other systems are other negative and/or noncontributory. PHYSICAL EXAM: General Impression: Alert and oriented x3, not in acute distress HEENT: Normocephalic atraumatic, extra-ocular movements intact, pupils equal and reactive to light bilaterally, mucous membranes moist, normal TMs bilaterally Cardiovascular: Heart regular rate and rhythm Chest: Able to complete full sentences, no retractions, no tachypnea Abdomen: abdomen soft, non-tender, non-distended, no organomegaly Musculoskeletal: Pulses present and equal in all extremities, no peripheral edema Motor: no focal deficits noted Neurological: CN II-XII grossly intact, no focal motor or sensory deficits noted Skin: Intact with no visualized rashes Psych: Normal affect and mood ED course: 86-year-old female presents to the emergency department for several weeks of tinnitus. Vital signs upon arrival are within acceptable limits. Patient does not have any neurologic deficits. Laboratory evaluation obtained. CBC unremarkable. Metabolic panel is negative. Computed tomography scan of the brain shows no acute processes. Patient reevaluated at the bedside at 9:10 AM found to be stable medical condition. She still endorses no symptoms at this time. Patient advised to follow-up with primary care physician or ENT specialist. She is given referral. She has seen Dr. Krishna and Dr. Swartz in the past for another complaint per she is advised to follow with one of them. EKG interpretation: Ventricular rate 66, normal sinus rhythm, LA interval 186, QRS 82, QTC 427. No LA prolongation, no QTC prolongation, no ST or T-wave changes noted. Overall, this EKG is unremarkable - Related Data Previous Rx's Medication Instructions Recorded Aspirin 81 mg PO DAILY #30 chew 12/09/19 Atorvastatin Calcium [Lipitor] 10 mg PO HS #30 tab 12/09/19 Losartan [Cozaar] 100 mg PO DAILY #30 tab 12/09/19 Metoprolol Tartrate [Lopressor] 25 mg PO DAILY #30 tab 12/09/19 hydrALAZINE HCL [Apresoline] 100 mg PO TID #90 tab 12/09/19 hydroCHLOROthiazide [Hydrodiuril] 12.5 mg PO MOWEFR #12 cap 12/09/19 Allergies Allergy/AdvReac Type Severity Reaction Status Date / Time No Known Allergies Allergy Verified 10/03/21 08:05 Review of Systems ROS Statement: Those systems with pertinent positive or pertinent negative responses have been documented in the HPI. ROS Other: All systems not noted in ROS Statement are negative. Past Medical History Past Medical History: Hypertension, Liver Disease Additional Past Medical History / Comment(s): neuropathy History of Any Multi-Drug Resistant Organisms: None Reported Past Surgical History: Orthopedic Surgery Additional Past Surgical History / Comment(s): bilateral knees Past Anesthesia/Blood Transfusion Reactions: No Reported Reaction Past Psychological History: No Psychological Hx Reported Smoking Status: Never smoker Past Alcohol Use History: None Reported Past Drug Use History: None Reported - Past Family History Mother Family Medical History: Myocardial Infarction (SD) Additional Family Medical History / Comment(s): Pass d/t heart attack General Exam Limitations: no limitations Course Vital Signs 10/03/21 10/03/21 07:57 08:22 Temperature 98.3 F Pulse Rate 73 62 Pulse Rate [ 60 Scrap Baler ] Respiratory 18 18 Rate Blood Pressure 195/81 166/78 O2 Sat by Pulse 97 97 Oximetry Medical Decision Making - Lab Data Result diagrams: 10/03/21 08:34 10/03/21 08:34 Lab Results 10/03/21 10/03/21 Range/Units 08:34 08:34 WBC 5.5 (3.8-10.6) k/uL RBC 4.19 (3.80-5.40) m/uL Hgb 13.6 (11.4-16.0) gm/dL Hct 40.2 (34.0-46.0) % MCV 95.9 (80.0-100.0) fL MCH 32.4 (25.0-35.0) pg MCHC 33.7 (31.0-37.0) g/dL RDW 12.4 (11.5-15.5) % Plt Count 295 (150-450) k/uL MPV 7.1 Neutrophils % 64 % Lymphocytes % 26 % Monocytes % 6 % Eosinophils % 2 % Basophils % 1 % Neutrophils # 3.5 (1.3-7.7) k/uL Lymphocytes # 1.4 (1.0-4.8) k/uL Monocytes # 0.3 (0-1.0) k/uL Eosinophils # 0.1 (0-0.7) k/uL Basophils # 0.1 (0-0.2) k/uL Sodium 137 (137-145) mmol/L Potassium 3.9 (3.5-5.1) mmol/L Chloride 105 (98-107) mmol/L Carbon Dioxide 23 (22-30) mmol/L Anion Gap 9 mmol/L BUN 18 H (7-17) mg/dL Creatinine 0.76 (0.52-1.04) mg/dL Est GFR (CKD-EPI)AfAm 83 (>60 ml/min/1.73 sqM) Est GFR (CKD-EPI)NonAf 72 (>60 ml/min/1.73 sqM) Glucose 106 H (74-99) mg/dL Calcium 9.5 (8.4-10.2) mg/dL Disposition Clinical Impression: Tinnitus Disposition: HOME SELF-CARE Condition: Good Instructions (If sedation given, give patient instructions): Tinnitus (ED) Is patient prescribed a controlled substance at d/c from ED?: No Referrals: Emily Fan MD [Primary Care Provider] - 1-2 days Esau Krishna DO [Doctor of Osteopathic Medicine] - 1-2 days Kumar Swartz MD [STAFF PHYSICIAN] - 1-2 days
[2021-10-03 08:41] LABS: Basophils # (A) 0.1 k/uL (0-0.2); Basophils % (A) 1 %; Eosinophils # (A) 0.1 k/uL (0-0.7); Eosinophils % (A) 2 %; HCT 40.2 % (34.0-46.0); HGB 13.6 gm/dL (11.4-16.0); Lymphocytes # (A) 1.4 k/uL (1.0-4.8); Lymphocytes % (A) 26 %; MCH 32.4 pg (25.0-35.0); MCHC 33.7 g/dL (31.0-37.0); MCV 95.9 fL (80.0-100.0); Mean Platelet Volume 7.1; Monocytes # (A) 0.3 k/uL (0-1.0); Monocytes % (A) 6 %; Neutrophils # (A) 3.5 k/uL (1.3-7.7); Neutrophils % (A) 64 %; Platelet Count 295 k/uL (150-450); RBC 4.19 m/uL (3.80-5.40); RDW 12.4 % (11.5-15.5); WBC 5.5 k/uL (3.8-10.6)
--- NOTE | 2021-10-03 08:57 | CT ---
EXAMINATION TYPE: CT brain wo con DATE OF EXAM: 10/03/2021 HISTORY: ringing in ears, tinnitus. CT DLP: 1051.4 mGycm. Automated Exposure Control for Dose Reduction was Utilized. TECHNIQUE: CT scan of the head is performed without contrast. COMPARISON: None. FINDINGS: There is no acute intracranial hemorrhage or midline shift identified. There is mild diff use ventricular and sulcal prominence consistent with diffuse age-related cerebral atrophy. There is moderate low-attenuation in the deep and periventricular white matter consistent with chronic small vessel ischemic change in patient of this age. The globes are intact and the visualized sinuses are clear. No suspicious opacification of the mastoid air cells. Mild to moderate calcified plaque dist al internal carotid arteries bilaterally is present. IMPRESSION: No acute intracranial hemorrhage or midline shift. There is mild diffuse age-related ce rebral atrophy and moderate chronic small vessel ischemic change noted. Source of tinnitus is not id entified.
[2021-10-03 09:03] LABS: Calcium 9.5 mg/dL (8.4-10.2); Potassium 3.9 mmol/L (3.5-5.1)
[2021-10-03 09:29] VITALS: BP 140/72; PULSE 60
== END 2021-10-03 09:28 | disposition home or self-care (01) ==
LOC: EC 07:52
DX: H93.13 Tinnitus, bilateral (principal); I10 Essential (primary) hypertension; E78.5 Hyperlipidemia, unspecified; Z79.82 Long term (current) use of aspirin
CPT/HCPCS: 36415; 70450; 80048; 85025; 99284

== ENCOUNTER → 2022-07-27 | Outpatient (CLI) | payer MEDICARE, OTHER ==
--- NOTE | 2022-07-27 08:04 | CT ---
EXAMINATION TYPE: CT brain wo con CT DLP: 1012.7 mGycm, Automated exposure control for dose reduction was used. DATE OF EXAM: 07/27/2022 7:46 AM COMPARISON: 10/03/2021. CLINICAL INDICATION:Female, 87 years old with history of R41.3 AMNESIA, Amnesia, per family patient f agustin memory test TECHNIQUE: Brain: Axial CT images of the brain were obtained with coronal and sagittal reformats created and rev iewed. Contrast used: None. Oral contrast used: None. FINDINGS: Brain: Extra-axial spaces: No abnormal extra-axial fluid collections. Ventricular system: Within normal limits Cerebral parenchyma: No acute intraparenchymal hemorrhage or mass effect. The carcamo-white junction is well differentiated. Scattered hypoattenuating areas are seen within the white matter. Cerebellum: Unremarkable. Mass effect: No evidence of midline shift. Intracranial vasculature: unremarkable Soft tissues: Normal. Calvarium/osseous structures: No depressed skull fracture. Paranasal sinuses and mastoid air cells: Mild scattered paranasal sinus disease. Visualized orbits: Bilateral aphakia IMPRESSION: 1. No acute intracranial process. 2. Nonspecific white matter changes, likely secondary to chronic small vessel ischemic disease.
== END | disposition home or self-care (01) ==
LOC: RADCTMAIN 06:59
PROVIDERS: ATTEND Internal Medicine
DX: R41.3 Other amnesia (principal)
CPT/HCPCS: 70450

== ENCOUNTER 2023-01-30 13:14 | Inpatient (IN) | payer MEDICARE, OTHER ==
--- NOTE | 2023-01-30 13:42 | ED ---
General Adult HPI - General Source: patient, family, RN notes reviewed Mode of arrival: ambulatory Limitations: altered mental status <Moe Ball - Last Filed: 01/30/23 13:40> - General Source: patient, family, RN notes reviewed, old records reviewed <Scot Davis - Last Filed: 01/30/23 20:15> - General Stated complaint: AMS Time Seen by Provider: 01/30/23 13:40 - History of Present Illness Initial comments: 87-year-old female brought in emergency from via private vehicle with family for evaluation of altered mental status. Patient reportedly saw stranger in her apartment that was not there. They're unclear she is taking her medication. Patient's found to be hypertensive and does have multiple blood pressure medications. Patient has no physical complaints. Patient states she otherwise feels fine. Reportedly is abnormal behavior started yesterday. (Moe Ball) Patient is an 87-year-old female with past medical history remarkable for hypertension, liver disease, possible dementia per family presents emergency Department with hypertension, as well as some increased confusion. Patient has been having what the daughter describes as altered mental status. States she was told by the patient today that she is seeing a strange lady in her apartment. Patient lives alone. She believes it is hallucinations. Patient has been more forgetful lately and also has been getting the patient's son's name wrong. This is been ongoing for multiple weeks to months. Patient does live alone. Unknown if she is taking her medications. Presents hypertensive, with the high blood pressure I saw of systolics in the 220s. Highest documented is 212/119. Patient presents for further evaluation at this time. (Steven Davis) - Related Data Home Medications Medication Instructions Recorded Confirmed Atorvastatin [Lipitor] 40 mg PO HS 01/30/23 01/30/23 Losartan Potassium [Cozaar] 100 mg PO DAILY 01/30/23 01/30/23 Metoprolol Tartrate [Lopressor] 25 mg PO DAILY 01/30/23 01/30/23 cloNIDine HCL 0.1 mg PO BID 01/30/23 01/30/23 hydrALAZINE HCL [Apresoline] 50 mg PO BID 01/30/23 01/30/23 Previous Rx's Medication Instructions Recorded Metoprolol Tartrate [Lopressor] 25 mg PO DAILY #30 tab 12/09/19 Allergies Allergy/AdvReac Type Severity Reaction Status Date / Time No Known Allergies Allergy Verified 01/30/23 17:55 Review of Systems ROS Other: All systems not noted in ROS Statement are negative. <Moe Ball - Last Filed: 01/30/23 13:40> ROS Other: All systems not noted in ROS Statement are negative. <Scot Davis - Last Filed: 01/30/23 20:15> ROS Statement: Those systems with pertinent positive or pertinent negative responses have been documented in the HPI. Review of Systems: CONST: Denies fever EYES: Denies blurry vision ENT: Denies nasal congestion C/V: Denies Chest pain RESP: Denies shortness of breath GI: Denies abdominal pain : Denies dysuria SKIN: Denies rash. MSK: Denies joint pain. NEURO: Denies headache (Scot Davis) Past Medical History Past Medical History: Hypertension, Liver Disease Additional Past Medical History / Comment(s): neuropathy History of Any Multi-Drug Resistant Organisms: None Reported Past Surgical History: Orthopedic Surgery Additional Past Surgical History / Comment(s): bilateral knees Past Anesthesia/Blood Transfusion Reactions: No Reported Reaction Past Psychological History: No Psychological Hx Reported Smoking Status: Never smoker Past Alcohol Use History: None Reported Past Drug Use History: None Reported - Past Family History Mother Family Medical History: Myocardial Infarction (MA) Additional Family Medical History / Comment(s): Pass d/t heart attack <Moe Ball - Last Filed: 01/30/23 13:40> General Exam <Moe Ball - Last Filed: 01/30/23 13:40> <Scot Davis - Last Filed: 01/30/23 20:15> - General Exam Comments Initial Comments: Visual Physical Exam Vital signs reviewed General: Well-appearing, nontoxic, no acute distress. Head: Normocephalic, atraumatic Eyes: PERRLA, EOMI ENT: Airway patent Chest: Nonlabored breathing Skin: No visual rash, normal skin tone Neuro: Alert and oriented 3 Musculoskeletal: No gross abnormalities (Moe Ball) General: Appears in no acute distress. HEAD: Normal with no signs of head trauma. EYES: PERRLA, EOMI, conjunctiva normal, no discharge. Pupils are 3 mm equal bilaterally. ENT: Hearing grossly intact, normal oropharynx. RESPIRATORY: Clear breath sounds bilaterally. No wheezes, rales, or rhonchi. C/V: Regular rate and rhythm. S1 and S2 auscultated, no edema, peripheral pulses 2+ and intact throughout. patient's hypertensive. ABD: Abd is soft, nontender, nondistended EXT: Normal range of motion, no obvious deformity SKIN: No rashes or lesions observed on exposed skin. NEURO: Alert and oriented 2-3. Some confusion with time, which patient's daughter states is been an ongoing thing. NIH is otherwise 0. GCS is 15. No other acute neurological findings. (Scot Davis) Course Vital Signs 01/30/23 01/30/23 01/30/23 13:36 15:41 16:45 Temperature 98.9 F Pulse Rate 70 67 67 Respiratory 16 16 18 Rate Blood Pressure 212/119 211/106 184/82 O2 Sat by Pulse 96 98 97 Oximetry 01/30/23 18:56 Temperature Pulse Rate 80 Respiratory Rate Blood Pressure 190/101 O2 Sat by Pulse 96 Oximetry Medical Decision Making - Lab Data Result diagrams: 01/30/23 15:13 01/30/23 16:28 - EKG Data -: EKG Interpreted by Me <Scot Davis - Last Filed: 01/30/23 20:15> - Medical Decision Making Was pt. sent in by a medical professional or institution ([facility], [facility], urgent care, hospital, or [place] [facility] facility...) When possible be specific @ -No Did you speak to anyone other than the patient for history (EMS, parent, family, police, friend...)? What history was obtained from this source @ -Yes, patient's daughter who presents at bedside and provides most of the history. Did you review nursing and triage notes (agree or disagree)? Why? @ -I reviewed and agree with nursing and triage notes Were old charts reviewed (outside hosp., previous admission, EMS record, old EKG, old radiological studies, urgent care reports/EKG's, [place] [facility] facility records)? Report findings @ -No old charts were reviewed Differential Diagnosis (chest pain, altered mental status, abdominal pain women, abdominal pain men, vaginal bleeding, weakness, fever, dyspnea, syncope, headache, dizziness, GI bleed, back pain, seizure, CVA, palpatations, mental health, musculoskeletal)? @ -Hypertensive encephalopathy, progressive dementia, infection, intracranial injury, intracranial bleed. This list is not all inclusive. EKG interpreted by me (3pts min.). @ -As above X-rays interpreted by me (1pt min.). @ -Chest x-ray reveals no acute cardiopulmonary process that is obvious. CT interpreted by me (1pt min.). @ -CT brain reveals no obvious acute intracranial process or injury. U/S interpreted by me (1pt. min.). @ -None done What testing was considered but not performed or refused? (CT, X-rays, U/S, labs)? Why? @ -None What meds were considered but not given or refused? Why? @ -None Did you discuss the management of the patient with other professionals (professionals i.e. , PA, [facility], lab, RT, psych nurse, nursing home social worker, marketing administrator, teacher, liaison officer, top case assembler)? Give summary @ -No Was smoking cessation discussed for >3mins.? @ -No Was critical care preformed (if so, how long)? @ -No Were there social determinants of health that impacted care today? How? (Homelessness, low income, unemployed, alcoholism, drug addiction, transportation, low edu. Level, literacy, decrease access to med. care, [facility], rehab)? @ -No Was there de-escalation of care discussed even if they declined (Discuss DNR or withdrawal of care, Hospice)? DNR status @ -No What co-morbidities impacted this encounter? (DM, HTN, Smoking, COPD, CAD, Cancer, CVA, ARF, Chemo, Hep., AIDS, mental health diagnosis, sleep apnea, morb id obesity)? @ -History of hypertension Was patient admitted / discharged? Hospital course, mention meds given and route, prescriptions, significant lab abnormalities, going to OR and other pertinent info. @ -Based on the patient's presentation and physical exam, there is a concern for her new somewhat confusion. Seems to be having some hallucinations at home. I do believe it is likely secondary to progressive dementia versus possible h ypertensive encephalopathy. Patient has no other acute complaints at this time. Unknown if she is compliant with her home hypertensive medications. She denies any acute complaints at this time. We'll obtain cardiopulmonary and, as well as a CT brain and symptomatically treat her hypertension with IV hydralazine. Patient was in agreement this plan. Patient's daughter was also in agreement with this plan. Vital signs other than the hypertension are within acceptable limits. EKG showed no signs of acute ischemia. Chest x-ray unremarkable. CT brain unremarkable. Laboratory studies are within acceptable limits except for his findings of a possible early UTI. I did discuss the findings with the patient as well as her daughter. Patient's blood pressure did improve following hydralazine administration, decreasing from 220 systolic to 170s to 180s systolic. We will restart her home blood pressure medications, I would like to admit her to the hospital as well. They were in agreement this plan. She was started on Rocephin for her UTI. Neurology was consulted for her confusion w hich is likely secondary to progressive dementia. I did discuss the case with the admitting physician Dr. Ruiz who was in agreement with this plan. Undiagnosed new problem with uncertain prognosis? @ -No Drug Therapy requiring intensive monitoring for toxicity (Heparin, Nitro, Insulin, Cardizem)? @ -No Were any procedures done? @ -No Diagnosis/symptom? @ -Uncontrolled hypertension Acute, or Chronic, or Acute on Chronic? @ -Acute Uncomplicated (without systemic symptoms) or Complicated (systemic symptoms)? @ -Complicated Side effects of treatment? @ -No Exacerbation, Progression, or Severe Exacerbation? @ -No Poses a threat to life or bodily function? How? (Chest pain, [place], MA, pneumonia, PE, COPD, DKA, ARF, appy, cholecystitis, CVA, Diverticulitis, Homicidal, Suicid al, threat to staff... and all critical care pts) @ -potentially, if untreated can result in significant morbidity and mortality. Diagnosis/symptom? @ -Confusion, I suspect progressive dementia Acute, or Chronic, or Acute on Chronic? @ -Acute Uncomplicated (without systemic symptoms) or Complicated (systemic symptoms)? @ -Uncomplicated Side effects of treatment? @ -none Exacerbation, Progression, or Severe Exacerbation] @ -no Poses a threat to life or bodily function? @ -no Diagnosis/symptom? @ -HPI Acute, or Chronic, or Acute on Chronic? @ -Acute Uncomplicated (without systemic symptoms) or Complicated (systemic symptoms)? @ -Uncomplicated Side effects of treatment? @ -none Exacerbation, Progression, or Severe Exacerbation] @ -no Poses a threat to life or bodily function? @ -Potentially, if untreated can result in significant morbidity and mortality. (Scot Davis) - Lab Data Lab Results 01/30/23 01/30/23 01/30/23 Range/Units 15:13 15:13 15:13 WBC 6.7 (3.8-10.6) k/uL RBC 4.27 (3.80-5.40) m/uL Hgb 13.9 (11.4-16.0) gm/dL Hct 41.4 (34.0-46.0) % MCV 96.9 (80.0-100.0) fL MCH 32.5 (25.0-35.0) pg MCHC 33.6 (31.0-37.0) g/dL RDW 13.0 (11.5-15.5) % Plt Count 273 (150-450) k/uL MPV 7.1 Neutrophils % 59 % Lymphocytes % 30 % Monocytes % 8 % Eosinophils % 1 % Basophils % 1 % Neutrophils # 3.9 (1.3-7.7) k/uL Lymphocytes # 2.0 (1.0-4.8) k/uL Monocytes # 0.5 (0-1.0) k/uL Eosinophils # 0.1 (0-0.7) k/uL Basophils # 0.0 (0-0.2) k/uL PT 10.6 (9.0-12.0) sec INR 1.0 (<1.2) APTT 30.9 H (22.0-30.0) sec Sodium (137-145) mmol/L Potassium (3.5-5.1) mmol/L Chloride (98-107) mmol/L Carbon Dioxide (22-30) mmol/L Anion Gap mmol/L BUN (7-17) mg/dL Creatinine (0.52-1.04) mg/dL Est GFR (CKD-EPI)AfAm (>60 ml/min/1.73 sqM) Est GFR (CKD-EPI)NonAf (>60 ml/min/1.73 sqM) Glucose (74-99) mg/dL Calcium (8.4-10.2) mg/dL Total Bilirubin (0.2-1.3) mg/dL AST (14-36) U/L ALT (4-34) U/L Alkaline Phosphatase (38-126) U/L Ammonia (<30) umol/L Troponin I (0.000-0.034) ng/mL Total Protein (6.3-8.2) g/dL Albumin (3.5-5.0) g/dL Urine Color Yellow Urine Appearance Clear (Clear) Urine pH 7.0 (5.0-8.0) Ur Specific [place] 1.013 (1.001-1.035) Urine Protein Negative (Negative) Urine Glucose (UA) Negative (Negative) Urine Ketones Negative (Negative) Urine Blood Negative (Negative) Urine Nitrite Negative (Negative) Urine Bilirubin Negative (Negative) Urine Urobilinogen <2.0 (<2.0) mg/dL Ur Leukocyte Esterase Large H (Negative) Urine RBC <1 (0-5) /hpf Urine WBC 35 H (0-5) /hpf Ur Squamous Epith Cells <1 (0-4) /hpf Hyaline Casts 15 H (0-2) /lpf Urine Mucus Rare H (None) /hpf Influenza Type A (PCR) (Not Detectd) Influenza Type B (PCR) (Not Detectd) RSV (PCR) (Not Detectd) SARS-CoV-2 (PCR) (Not Detectd) 01/30/23 01/30/23 01/30/23 Range/Units 15:13 15:13 16:11 WBC (3.8-10.6) k/uL RBC (3.80-5.40) m/uL Hgb (11.4-16.0) gm/dL Hct (34.0-46.0) % MCV (80.0-100.0) fL MCH (25.0-35.0) pg MCHC (31.0-37.0) g/dL RDW (11.5-15.5) % Plt Count (150-450) k/uL MPV Neutrophils % % Lymphocytes % % Monocytes % % Eosinophils % % Basophils % % Neutrophils # (1.3-7.7) k/uL Lymphocytes # (1.0-4.8) k/uL Monocytes # (0-1.0) k/uL Eosinophils # (0-0.7) k/uL Basophils # (0-0.2) k/uL PT (9.0-12.0) sec INR (<1.2) APTT (22.0-30.0) sec Sodium (137-145) mmol/L Potassium (3.5-5.1) mmol/L Chloride (98-107) mmol/L Carbon Dioxide (22-30) mmol/L Anion Gap mmol/L BUN (7-17) mg/dL Creatinine (0.52-1.04) mg/dL Est GFR (CKD-EPI)AfAm (>60 ml/min/1.73 sqM) Est GFR (CKD-EPI)NonAf (>60 ml/min/1.73 sqM) Glucose (74-99) mg/dL Calcium (8.4-10.2) mg/dL Total Bilirubin (0.2-1.3) mg/dL AST (14-36) U/L ALT (4-34) U/L Alkaline Phosphatase (38-126) U/L Ammonia <9 (<30) umol/L Troponin I 0.026 (0.000-0.034) ng/mL Total Protein (6.3-8.2) g/dL Albumin (3.5-5.0) g/dL Urine Color Urine Appearance (Clear) Urine pH (5.0-8.0) Ur Specific [place] (1.001-1.035) Urine Protein (Negative) Urine Glucose (UA) (Negative) Urine Ketones (Negative) Urine Blood (Negative) Urine Nitrite (Negative) Urine Bilirubin (Negative) Urine Urobilinogen (<2.0) mg/dL Ur Leukocyte Esterase (Negative) Urine RBC (0-5) /hpf Urine WBC (0-5) /hpf Ur Squamous Epith Cells (0-4) /hpf Hyaline Casts (0-2) /lpf Urine Mucus (None) /hpf Influenza Type A (PCR) Not Detected (Not Detectd) Influenza Type B (PCR) Not Detected (Not Detectd) RSV (PCR) Not Detected (Not Detectd) SARS-CoV-2 (PCR) Not Detected (Not Detectd) 01/30/23 Range/Units 16:28 WBC (3.8-10.6) k/uL RBC (3.80-5.40) m/uL Hgb (11.4-16.0) gm/dL Hct (34.0-46.0) % MCV (80.0-100.0) fL MCH (25.0-35.0) pg MCHC (31.0-37.0) g/dL RDW (11.5-15.5) % Plt Count (150-450) k/uL MPV Neutrophils % % Lymphocytes % % Monocytes % % Eosinophils % % Basophils % % Neutrophils # (1.3-7.7) k/uL Lymphocytes # (1.0-4.8) k/uL Monocytes # (0-1.0) k/uL Eosinophils # (0-0.7) k/uL Basophils # (0-0.2) k/uL PT (9.0-12.0) sec INR (<1.2) APTT (22.0-30.0) sec Sodium 143 (137-145) mmol/L Potassium 4.5 (3.5-5.1) mmol/L Chloride 106 (98-107) mmol/L Carbon Dioxide 30 (22-30) mmol/L Anion Gap 7 mmol/L BUN 23 H (7-17) mg/dL Creatinine 0.92 (0.52-1.04) mg/dL Est GFR (CKD-EPI)AfAm 65 (>60 ml/min/1.73 sqM) Est GFR (CKD-EPI)NonAf 56 (>60 ml/min/1.73 sqM) Glucose 85 (74-99) mg/dL Calcium 9.4 (8.4-10.2) mg/dL Total Bilirubin 1.2 (0.2-1.3) mg/dL AST 39 H (14-36) U/L ALT 29 (4-34) U/L Alkaline Phosphatase 69 (38-126) U/L Ammonia (<30) umol/L Troponin I (0.000-0.034) ng/mL Total Protein 8.0 (6.3-8.2) g/dL Albumin 4.7 (3.5-5.0) g/dL Urine Color Urine Appearance (Clear) Urine pH (5.0-8.0) Ur Specific [place] (1.001-1.035) Urine Protein (Negative) Urine Glucose (UA) (Negative) Urine Ketones (Negative) Urine Blood (Negative) Urine Nitrite (Negative) Urine Bilirubin (Negative) Urine Urobilinogen (<2.0) mg/dL Ur Leukocyte Esterase (Negative) Urine RBC (0-5) /hpf Urine WBC (0-5) /hpf Ur Squamous Epith Cells (0-4) /hpf Hyaline Casts (0-2) /lpf Urine Mucus (None) /hpf Influenza Type A (PCR) (Not Detectd) Influenza Type B (PCR) (Not Detectd) RSV (PCR) (Not Detectd) SARS-CoV-2 (PCR) (Not Detectd) - EKG Data EKG Comments: 12-lead Electrocardiogram Interpretation Note EKG was reviewed and interpreted by myself. 12-lead ECG performed at 1503 is interpreted by me as revealing normal sinus rhythm at a rate of 67 beats per minute. [place] is normal. [place] interval is 191 ms, QRS duration is 89 ms, QTc is 407 ms.. There were no ST or T wave abnormalities to suggest myocardial ischemia or injury. R wave progression across the precordium was satisfactory. By my interpretation this EKG is non-diagnostic for acute ischemia. (Scot Davis) Disposition <Moe Ball - Last Filed: 01/30/23 13:40> Time of Disposition: 17:45 <Scot Davis - Last Filed: 01/30/23 20:15> Clinical Impression: Altered mental status, Uncontrolled hypertension, Dementia Disposition: ADMITTED IP TO THIS HOSP Condition: Stable Referrals: Emily Ruiz MD [Primary Care Provider] - 1-2 days
--- NOTE | 2023-01-30 14:26 | XR ---
EXAMINATION TYPE: XR chest 2V DATE OF EXAM: 01/30/2023 2:19 PM COMPARISON: Chest radiographs from 12/08/2019 TECHNIQUE: XR chest 2V Frontal and lateral views of the chest. CLINICAL INDICATION:Female, 87 years old with history of altered mental status; FINDINGS: Lungs/Pleura: There is no evidence of pleural effusion, focal consolidation, or pneumothorax. Pulmonary vascularity: Unremarkable. Heart/mediastinum: Cardiomediastinal silhouette is unremarkable. The aorta appears tortuous, a findi ng usually associated with either atherosclerosis or systemic hypertension. Musculoskeletal: No acute osseous pathology. IMPRESSION: No acute cardiopulmonary disease/process.
[2023-01-30] MEDS ORDERED: hydrALAZINE HCL 20 MG/ML 1 ML VIAL IVP STA ×2 (15:24→18:51)
[2023-01-30 15:54] LABS: Basophils % (A) 1 %; Eosinophils # (A) 0.1 k/uL (0-0.7); Eosinophils % (A) 1 %; HCT 41.4 % (34.0-46.0); HGB 13.9 gm/dL (11.4-16.0); Lymphocytes % (A) 30 %; MCH 32.5 pg (25.0-35.0); MCHC 33.6 g/dL (31.0-37.0); MCV 96.9 fL (80.0-100.0); Mean Platelet Volume 7.1; Monocytes # (A) 0.5 k/uL (0-1.0); Monocytes % (A) 8 %; Neutrophils # (A) 3.9 k/uL (1.3-7.7); Neutrophils % (A) 59 %; Platelet Count 273 k/uL (150-450); RBC 4.27 m/uL (3.80-5.40); WBC 6.7 k/uL (3.8-10.6)
--- NOTE | 2023-01-30 16:30 | CT ---
EXAMINATION TYPE: CT brain wo con CT DLP: 1103.7 mGycm, Automated exposure control for dose reduction was used. DATE OF EXAM: 01/30/2023 4:24 PM COMPARISON: 07/27/2022. CLINICAL INDICATION:Female, 87 years old with history of ams, AMS TECHNIQUE: Brain: Axial CT images of the brain were obtained with coronal and sagittal reformats created and rev iewed. Contrast used: None. Oral contrast used: None. FINDINGS: Brain: Extra-axial spaces: No abnormal extra-axial fluid collections. Ventricular system: Dilatation in proportion to cerebral atrophy. Cerebral parenchyma: No acute intraparenchymal hemorrhage or mass effect. The carcamo-white junction is well differentiated. Scattered hypoattenuating areas are seen within the white matter. Cerebellum: Unremarkable. Mass effect: No evidence of midline shift. Intracranial vasculature: Atherosclerotic calcifications of the intracranial vessels. Soft tissues: Normal. Calvarium/osseous structures: No depressed skull fracture. Paranasal sinuses and mastoid air cells: Mild scattered paranasal sinus disease. Visualized orbits: Bilateral aphakia IMPRESSION: 1. No acute intracranial process. 2. Nonspecific white matter changes, likely secondary to chronic small vessel ischemic disease.
[2023-01-30 16:35] LABS: Partial Thromboplastin Time 30.9 sec (22.0-30.0); Prothrombin Time 10.6 sec (9.0-12.0)
[2023-01-30 16:52] LABS: Albumin 4.7 g/dL (3.5-5.0); Calcium 9.4 mg/dL (8.4-10.2); Potassium 4.5 mmol/L (3.5-5.1); Total Bilirubin 1.2 mg/dL (0.2-1.3)
[2023-01-30 16:55] LABS: Appearance,Urine Clear (Clear); Bilirubin,Urine Negative (Negative); Blood,Urine Negative (Negative); Color,Urine Yellow; Glucose,Urine (UA) Negative (Negative); Hyaline Casts,Urine 15 /lpf (0-2); Ketones,Urine Negative (Negative); Leukocyte Esterase,Urine Large (Negative); Mucus,Urine Rare /hpf; Nitrite,Urine Negative (Negative); Protein,Urine Negative (Negative); RBC,Urine <1 /hpf (0-5); Specific Gravity,Urine 1.013 (1.001-1.035); Squamous Epithelial Cell,Urine <1 /hpf (0-4); Urobilinogen,Urine <2.0 mg/dL (<2.0); WBC,Urine 35 /hpf (0-5)
[2023-01-30] MEDS ORDERED: NALOXONE 0.4 MG/ML 1 ML VIAL IV PRN (17:54)
[2023-01-30] MEDS: HEPARIN SODIUM,PORCINE/PF 5,000 UNIT/0.5 ML SYRINGE SQ SCH (20:23)
[2023-01-30] MEDS: ATORVASTATIN 40 MG TAB PO SCH (20:23)
[2023-01-30] MEDS: cloNIDine HCL 0.1 MG TAB PO SCH (20:23)
[2023-01-30] MEDS: hydrALAZINE HCL 50 MG TAB PO SCH (20:23)
[2023-01-31] MEDS: hydrALAZINE HCL 50 MG TAB PO SCH (08:48)
[2023-01-31] MEDS: METOPROLOL TARTRATE 25 MG TAB PO SCH (08:48)
[2023-01-31] MEDS: HEPARIN SODIUM,PORCINE/PF 5,000 UNIT/0.5 ML SYRINGE SQ SCH ×2 (08:48→21:20)
[2023-01-31] MEDS: LOSARTAN 50 MG TAB PO SCH (08:48)
[2023-01-31] MEDS: cloNIDine HCL 0.1 MG TAB PO SCH ×2 (08:48→19:59)
[2023-01-31 10:04] LABS: African American GFR (CKD) 76.8 (60.0-200.0); Anion Gap 10.9 mmol/L (10.00-18.00); BUN/Creat Ratio 23.38 Ratio (12.00-20.00); Blood Urea Nitrogen 18.7 mg/dL (9.0-27.0); Calcium 9.8 mg/dL (8.7-10.3); Carbon Dioxide 27.1 mmol/L (20.0-27.5); Non-African American GFR(CKD) 66.3 (60.0-200.0); Potassium 3.9 mmol/L (3.5-5.5)
[2023-01-31 10:31] LABS: Basophils # (A) 0.04 X 10*3/uL (0.00-0.10); Basophils % (A) 0.5 %; Eosinophils # (A) 0.01 X 10*3/uL (0.04-0.35); Eosinophils % (A) 0.1 %; HCT 41.6 % (37.2-46.3); HGB 13.8 g/dL (12.0-15.0); Immature Grans, Automated 0.2 %; MCH 32.2 pg (27.0-32.0); MCHC 33.2 g/dL (32.0-37.0); MCV 97.2 fL (80.0-97.0); Mean Platelet Volume 10.6 fL (9.5-12.2); Monocytes # (A) 0.36 X 10*3/uL (0.20-1.00); Monocytes % (A) 4.3 %; NRBC Per 100 WBC 0 /100 WBCS (0.0-0.0); Neutrophils # (A) 6.39 X 10*3/uL (1.80-7.70); Neutrophils % (A) 75.9 %; Platelet Count 268 X 10*3/uL (140-440); RBC 4.28 X 10*6/uL (4.10-5.20); RDW 13.4 % (11.5-14.5); WBC 8.42 X 10*3/uL (4.50-10.00)
--- NOTE | 2023-01-31 10:56 | P.CNNES ---
History of Present Illness Consult date: 01/31/23 Requesting physician: Scot Davis Reason for Consult: AMS, supspected progressive dementia hypertensive encephalopathy History of Present Illness: This is a 87-year-old woman with history of hypertension who presented to the emergency department because of altered mental status. Some of the history is obtained from medical records. It seems the patient has been seeing strangers in her apartment that are not there. Patient stated it has been going on for 3 days prior to presenting to hospital and saw a version of herself as child. The people that she sees do not converse with her. Family notified ED team, that they are unsure if patient is taking her medications. Patient stated she is compliant with her medication she thinks It seems she is on multiple medication for hypertension. Patient denies of headache, nausea, vomiting, visual disturbance. On presentation her blood pressure is within 220's/110's. Some of the other work-up during this hospital visit consisted of: Afebrile so far. Ammonia <9. I reviewed the chemistry panel and basic electrolyte are within normal limits. CT head is reported as No acute intracranial process. Nonspecific white matter changes, likely due to chronic microvascular disease. I personally reviewed CT and feel no acute or subacute ischemia, no hemorrhage. 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 Review of Systems Review of system: The 12 point system was reviewed and apparent positive and negative per HPI. Past Medical History Past Medical History: Hypertension, Liver Disease Additional Past Medical History / Comment(s): neuropathy History of Any Multi-Drug Resistant Organisms: None Reported Past Surgical History: Orthopedic Surgery Additional Past Surgical History / Comment(s): bilateral knees Past Anesthesia/Blood Transfusion Reactions: No Reported Reaction Past Psychological History: No Psychological Hx Reported Smoking Status: Never smoker Past Alcohol Use History: None Reported Past Drug Use History: None Reported - Past Family History Mother Family Medical History: Myocardial Infarction ([place]) Additional Family Medical History / Comment(s): Pass d/t heart attack Medications and Allergies Home Medications Medication Instructions Recorded Confirmed Type Metoprolol Tartrate [Lopressor] 25 mg PO DAILY #30 tab 12/09/19 01/30/23 Rx Atorvastatin [Lipitor] 40 mg PO HS 01/30/23 01/30/23 History Losartan Potassium [Cozaar] 100 mg PO DAILY 01/30/23 01/30/23 History Metoprolol Tartrate [Lopressor] 25 mg PO DAILY 01/30/23 01/30/23 History cloNIDine HCL 0.1 mg PO BID 01/30/23 01/30/23 History hydrALAZINE HCL [Apresoline] 50 mg PO BID 01/30/23 01/30/23 History Allergies Allergy/AdvReac Type Severity Reaction Status Date / Time No Known Allergies Allergy Verified 01/30/23 17:55 Physical Examination - Vital Signs Vital Signs: Vital Signs Temp Pulse Resp BP Pulse Ox 01/30/23 18:56 80 190/101 96 01/30/23 16:45 67 18 184/82 97 01/30/23 15:41 67 16 211/106 98 01/30/23 13:36 98.9 F 70 16 212/119 96 Intake and Output 01/30/23 01/30/23 01/30/23 06:59 14:59 22:59 Other: Weight 63.503 kg GENERAL: The patient is lying in bed and is not in acute distress. CHEST: The heart rate is regular rate rhythm. No murmurs to auscultation. LUNG: Clear to auscultation bilaterally no wheezing noted throughout. Not labored breathing. ABDOMEN/GI: Bowel sounds present in all 4 quadrants. No tenderness to palpation throughout. NEUROLOGICAL: Higher mental function: The patient is awake, alert, oriented to self. With options she stated she was in the hospital. She could not tell me year or month. Patient is slow responding. Patient is following simple commands but is slow following commands. Language is limited. No neglect. Cranial nerves: The pupils are round, equal and reactive to light. Visual fie lds is limited because of cooperation. EOM is limited but was able to track looking to right and left and no appreciable nystagmus. Facial sensation is normal to touch throughout. The facial strength is normal throughout. Hearing is normal bilaterally to hand rub. Tongue is midline and moved [id number] without any difficulty. No dysarthria is noted. Shoulder shrug is normal bilaterally. Motor: The strength is hard to assess individual muscles but lifting all extremities above gravity without focality. Normal tone and bulk. Cerebellum: Normal finger to nose bilaterally. Sensation: Sensation is normal to touch throughout. Reflexes (right/left): 2+ throughout except ankles are 1+. Plantars are mute bilaterally. Results - Laboratory Findings CBC and BMP: 01/31/23 06:29 01/31/23 06:29 Abnormal Lab Findings: Abnormal Labs 01/30/23 01/30/23 01/30/23 15:13 15:13 16:28 APTT 30.9 H BUN 23 H AST 39 H Ur Leukocyte Esterase Large H Urine WBC 35 H Hyaline Casts 15 H Urine Mucus Rare H Assessment and Plan Assessment: This is an 87 y/o woman who presented because of confusion. She has been seen strangers in her apartment that are not there for 3 days. On presentation to hospital blood pressure 220's/110's and unsure if patient is compliant with her medication. AMS seems due to hypertensive encephalopathy and possible acute UTI. Possible has underlying cognitive impairement/dementia Hypertensive emergency (blood pressure on presentation 220's/110;s) History of hypertension Plan: I ordered routine EEG to rule out any seizure or discharges. TSH: 3.040, vitamin B12: 569, folate: 40.0. Pending syphilis test Ordered carotid duplex. Consider 2D echo especially with uncontrolled hypertension but will defer work-up to primary. Q4 hour neuro checks If patient continues to have confusion, recommend MRI Brain w/o. Please avoid drastic correction of hypertension to avoid stroke. Will defer hypertension management and rest of medical management to primary team. Upon discharge, recommend the patient to follow-up with neurologist within 1-2 weeks. Thank your for the consultation. Time with Patient: Greater than 30
--- NOTE | 2023-01-31 14:39 | EEG ---
ELECTROENCEPHALOGRAM REPORT CLINICAL HISTORY: This is an 87-year-old woman with altered mental status. The video EEG is obtained to evaluate for seizure and epileptiform activity. RELEVANT MEDICATIONS: The patient is not on any antiseizure medication. EEG TYPE: A routine 21-channel EEG is performed with video using the 10/20 electrode placement system. DESCRIPTION: Wakefulness is only obtained. During awake state, background was somewhat hard to assess, but it seems 6 to 7 Hz activity. Otherwise, there is no physiological stage II sleep architecture. There is no focal slowing. INTERICTAL AND ICTAL: None. ACTIVATION PROCEDURE: Photic stimulation and hyperventilation are not performed. There is moderate diffuse myogenic artifact. CLINICAL INTERPRETATION: This is an abnormal routine EEG. The background slowing is suggestive of mild encephalopathy. Otherwise, there is no focal slowing, epileptiform discharge, or seizure on the EEG. Clinical correlation is recommended. DEEPTI / VIGNESH: [id number] /
--- NOTE | 2023-01-31 17:50 | US ---
EXAMINATION TYPE: US carotid duplex BILAT DATE OF EXAM: 01/31/2023 COMPARISON: 08/08/2021 CLINICAL HISTORY: Stroke. TECHNIQUE: Carotid duplex ultrasound examination. Indirect Doppler criteria was utilized. FINDINGS: EXAM MEASUREMENTS: RIGHT: Peak Systolic Velocity (PSV) cm/sec ----- Right CCA: 58.6 ----- Right ICA: 61.8 ----- Right ECA: 31.0 ICA/CCA ratio: 1.1 RIGHT: End Diastole cm/sec ----- Right CCA: 10.0 ----- Right ICA: 17.7 ----- Right ECA: 0.00 LEFT: Peak Systolic Velocity (PSV) cm/sec ----- Left CCA: 49.1 ----- Left ICA: 64.0 ----- Left ECA: 19.2 ICA/CCA ratio: 1.3 LEFT: End Diastole cm/sec ----- Left CCA: 12.0 ----- Left ICA: 20.6 ----- Left ECA: 1.9 VERTEBRALS (direction of flow): Right Vertebral: Antegrade Left Vertebral: Antegrade WELLNESS MANAGER NOTES: No significant velocity elevations IMPRESSION: There is antegrade flow in the vertebral arteries. The images and measurements suggest less than 40% stenosis in both internal carotid arteries. Criteria for Assigning % of Stenosis / Diameter reduction (Estimation based on the indirect measurements of the internal carotid artery velocities (ICA PSV). 1. Normal (no stenosis)=ICA PSV < 125 cm/s: ratio < 2.0: ICA EDV<40 cm/s. 2. Less than 50% stenosis=ICA PSV < 125 cm/s: ratio < 2.0: ICA EDV<40 cm/s. 3. 50 to 69% stenosis=ICA PSV of 125 to 230 cm/s: ration 2.0 ? 4.0: ICA EDV 40-100 cm/s. 4. Greater than 70% stenosis to near occlusion= ICA PSV > 230 cm/s: ratio > 4.0: ICA EDV > 100 cm/s. 5. Near occlusion= ICA PSV velocities may be low or undetectable: variable ratio and ICA EDV. 6. Total occlusion=unable to detect flow.
[2023-01-31] MEDS: amLODIPine 10 MG TAB PO SCH (19:59)
[2023-01-31] MEDS: ATORVASTATIN 40 MG TAB PO SCH (19:59)
[2023-02-01] MEDS: PANTOPRAZOLE 40 MG TABLET PO SCH (06:33)
[2023-02-01] MEDS: HEPARIN SODIUM,PORCINE/PF 5,000 UNIT/0.5 ML SYRINGE SQ SCH ×2 (08:35→20:25)
[2023-02-01] MEDS: cloNIDine HCL 0.1 MG TAB PO SCH ×2 (08:35→20:25)
[2023-02-01] MEDS: LOSARTAN 50 MG TAB PO SCH (08:35)
[2023-02-01] MEDS: METOPROLOL TARTRATE 25 MG TAB PO SCH (09:38)
[2023-02-01 09:50] LABS: Basophils # (A) 0.06 X 10*3/uL (0.00-0.10); Basophils % (A) 0.8 %; Eosinophils # (A) 0.17 X 10*3/uL (0.04-0.35); Eosinophils % (A) 2.1 %; HCT 40.2 % (37.2-46.3); HGB 13.4 g/dL (12.0-15.0); Immature Grans, Automated 0.1 %; Lymphocytes # (A) 3.43 X 10*3/uL (0.90-5.00); Lymphocytes % (A) 43.3 %; MCH 32.1 pg (27.0-32.0); MCHC 33.3 g/dL (32.0-37.0); MCV 96.2 fL (80.0-97.0); Mean Platelet Volume 10.7 fL (9.5-12.2); Monocytes # (A) 0.65 X 10*3/uL (0.20-1.00); Monocytes % (A) 8.2 %; NRBC Per 100 WBC 0 /100 WBCS (0.0-0.0); Neutrophils # (A) 3.61 X 10*3/uL (1.80-7.70); Neutrophils % (A) 45.5 %; Platelet Count 255 X 10*3/uL (140-440); RBC 4.18 X 10*6/uL (4.10-5.20); RDW 13.2 % (11.5-14.5); WBC 7.93 X 10*3/uL (4.50-10.00)
[2023-02-01 09:51] LABS: African American GFR (CKD) 58.7 (60.0-200.0); Albumin/Globulin Ratio 1.48 (1.60-3.17); Anion Gap 12.3 mmol/L (10.00-18.00); BUN/Creat Ratio 23.7 Ratio (12.00-20.00); Blood Urea Nitrogen 23.7 mg/dL (9.0-27.0); Calcium 9.2 mg/dL (8.7-10.3); Carbon Dioxide 24.7 mmol/L (20.0-27.5); Globulin 2.7 g/dL (1.6-3.3); Non-African American GFR(CKD) 50.6 (60.0-200.0); Potassium 4.1 mmol/L (3.5-5.5); Total Bilirubin 0.9 mg/dL (0.30-1.20); Total Protein 6.7 g/dL (6.2-8.2)
--- NOTE | 2023-02-01 11:38 | P.PN ---
Subjective Progress Note Date: 02/01/23 The patient is seen at bedside and denies seeing any people in the room that are not there. She feels she is at baseline. Per nurse they feel at times she seems paranoid by nursing staff. Objective - Vital Signs Vital signs: Vital Signs Temp 98.4 F 02/01/23 06:58 Pulse 55 L 02/01/23 06:58 Resp 16 02/01/23 08:00 BP 148/93 02/01/23 06:58 Pulse Ox 96 02/01/23 08:27 FiO2 Intake & Output 01/31/23 02/01/23 02/01/23 18:59 06:59 18:59 Intake Total 118 300 118 Balance 118 300 118 Intake: Oral 118 300 118 Other: Voiding Method Toilet Toilet # Voids 2 2 - Exam GENERAL: The patient is lying in bed and is not in acute distress. NEUROLOGICAL: Higher mental function: The patient is awake, alert, oriented to self. With options she stated she was in the hospital. She stated the month is February and could not tell me year. Somewhat slow responding. Patient is following simple commands but is slow following commands. Language is limited. No neglect. Cranial nerves: The pupils are round, equal and reactive to light. Visual fiel ds is limited because of cooperation. EOM is limited but was able to track looking to right and left and no appreciable nystagmus. Facial sensation is normal to touch throughout. The facial strength is normal throughout. Hearing is normal bilaterally to hand rub. Tongue is midline and moved [id number] without any difficulty. No dysarthria is noted. Shoulder shrug is normal bilaterally. Motor: The strength is hard to assess individual muscles but lifting all extremities above gravity without focality. Normal tone and bulk. Cerebellum: Normal finger to nose bilaterally. Sensation: Sensation is normal to touch throughout. Reflexes (right/left): 2+ throughout except ankles are 1+. Plantars are mute bilaterally. Some of the other work-up during this hospital visit consisted of: Afebrile so far. Ammonia <9. TSH: 3.040, vitamin B12: 569, folate: 40.0. Syphilis test: Nonreactive I reviewed the chemistry panel and basic electrolyte are within normal limits. CT head is reported as No acute intracranial process. Nonspecific white matter changes, likely due to chronic microvascular disease. I personally reviewed CT and feel no acute or subacute ischemia, no hemorrhage. 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 Routine EEG is abnormal. Tobacco slowing suggestive of mild encephalopathy. O therwise there is no focal slowing, epileptiform discharges or seizure on the EEG Carotid duplex was reported as there is antegrade flow in the vertebral artery. Images and measurements suggest less than 40% stenosis in both internal carotid arteries. - Labs CBC & Chem 7: 02/01/23 06:07 02/01/23 06:07 Labs: Abnormal Lab Results - Last 24 Hours (Table) 02/01/23 02/01/23 Range/Units 06:07 06:07 MCH 32.1 H (27.0-32.0) pg Est GFR (CKD-EPI)AfAm 58.7 L (60.0-200.0) Est GFR (CKD-EPI)NonAf 50.6 L (60.0-200.0) BUN/Creatinine Ratio 23.70 H (12.00-20.00) Ratio Albumin/Globulin Ratio 1.48 L (1.60-3.17) g/dL Microbiology - Last 24 Hours (Table) 01/30/23 15:13 Urine Culture - Final Urine,Voided Assessment and Plan Assessment: This is an 87 y/o woman who presented because of confusion. She has been seen strangers in her apartment that are not there for 3 days. On presentation to hospital blood pressure 220's/110's and unsure if patient is compliant with her medication. AMS seems due to hypertensive encephalopathy and possible acute UTI. Also possibly has underlying cognitive impairement/dementia. Hypertensive emergency (blood pressure on presentation 220's/110's)--improving History of hypertension Plan: 2D echo is ordered by primary team. Q4 hour neuro checks I spoke with the patient's daughter (Yoly) via phone and stated patient has be forgetful for the past 1-2 months, forgetting her son's name and would be agitated if anyone stated that is forgetful. Recommend MRI Brain w/o but it seems patient would not lay still for it so can be considered as outpatient. Recommend neuropsych evaluation for detailed memory testing as outpatient. Patient can be tried on Aricept 5mg daily dose for likely underlying dementia if family agrees. Daughter agreed and I started 5mg qhs. Will defer hypertension management and rest of medical management to primary team. Upon discharge, recommend the patient to follow-up with neurologist within 1-2 weeks. Daughter stated she will attempt to have her follow-up with someone locally. The plan is discussed with daughter (Yoly) via phone and her nurse. Time with Patient: Less than 30
--- NOTE | 2023-02-01 14:32 | P.HPIM ---
History of Present Illness H&P Date: 01/31/23 Chief Complaint: Acute mental status changes with encephalopathy. 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, patient presented to the emergency department at [facility] with acute mental status changes according to the daughter the patient has been seeing a a young girl at her apartment every time she looks in the mirror, so she went and stayed with her overnight, however this become more problematic, she contacted my office and my nursing staff suggested for her to go to the ER for evaluation, she was extremely hypertensive as the patient may not be taking her medication on time, due to short-term memory loss, patient did receive her medication, she was started back on her clonidine 0.1 mg orally twice every day as well as metoprolol 25 mg orally twice every day and losartan 100 mg once every day as well as hydrochlorothiazide 12.5 mg once every day, and the she was admitted to the hospital for evaluation after she had a computed tomography scan of the brain did not show evidence of acute abnormalities, she was seen in consultation by neurology who thought that the patient is experiencing hypertensive encephalopathy and possible encephalopathy metabolic due to urinary tract infec tion patient was started on IV antibiotic in the form of Rocephin and she was admitted to the hospital for evaluation and treatment was recommended to monitor the patient hospital for the next 1 or 2 days prior to her discharge. REVIEW OF SYSTEMS: Constitutional: No documented fever, no chills, no night sweats. No weight change. No weakness, fatigue or lethargy. No daytime sleepiness. HEENT: No headache. No blurred vision or double vision, no loss of vision. No loss of Hearing, no ringing in the ears, no dizziness. No nasal drainage or congestion. No epistaxis. No sore throat. Lungs: No shortness of breath, no cough, no sputum production. No wheezing. Reports dyspnea with activity. Cardiovascular: No chest pain, no lower extremity edema. No palpitations. No paroxysmal nocturnal dyspnea. No orthopnea. No lightheadedness or dizziness. No syncopal episodes. Abdominal: Reports no abdominal pain. No nausea, vomiting. No diarrhea. No constipation. No bloody or tarry stools reports loss of appetite. Genitourinary: No dysuria, increased frequency, urgency. No urinary retention. Musculoskeletal: No myalgias. No muscle weakness, no gait dysfunction, no frequent falls. No back pain. No neck pain. Integumentary: No wounds, no lesions. No rash or pruritus. No unusual bruising. No change in hair or nails. Neurologic: No aphasia. No facial droop. positive for change in mentation. No head injury. No headache. No paralysis. No paresthesia. Psychiatric: positive for depression. No anxiety. No mood swings, memory loss Endocrine: No abnormal blood sugars. No weight change. PAST MEDICAL HISTORY: Hypertension and hypertensive cardiovascular disease. Hyperlipidemia. Anxiety . Depression with psychotic feature. Memory loss likely vascular dementia. PAST SURGICAL HISTORY: carpal tunnel release of the right hand. cataract removal 2. Colonoscopy. Tonsillectomy and adenoidectomy. SOCIAL HISTORY: patient is a lifelong nonsmoker, she is nondrinker, she lives along, she has a very good family support. FAMILY HISTORY: Father at age of 82 from old age mother at the age of 62 from stroke patient had 3 brothers all diseased one from alcoholism patient had 2 sisters from old age, patient had 3 sons one has prostate cancer the other 2 are okay, patient has one daughter who at age of 55 from cystic fibrosis post lung transplant, the other daughter is okay. PHYSICAL EXAMINATION: General: 87-year-old -[place] female laying down in bed in no apparent distress. HEENT: Head is atraumatic, normocephalic, pupils were equal round reactive to light and recommendation, extraocular muscle movement were intact, sclera nonicteric, conjunctivae were pale, mucous membranes of the mouth are somewhat dry. Neck: Supple, no JVP, normal carotid upstroke bilaterally, no lymphadenopathy. Chest: Decreased breath sounds at the bases, few rhonchi, no expiratory wheezes, no chest wall tenderness, no intercostal retractions. Heart: First heart sound is normal, second heart sound is normal there is JENN 2/6located at the left sternal border. Abdomen: Soft, nontender, nondistended, positive bowel sounds. Extremities: There is no edema no calf tenderness DP +2 bilaterally. Neurologic examination: Patient is awake alert and oriented X 2, cranial nerves II-12 appear grossly intact, muscle power were 5 out of 5 in upper extremities and 5 out of 5 in bilateral lower extremities, deep tendon reflexes normal bilaterally. ASSESSMENT AND PLAN: 1. Acute metabolic and hypertensive encephalopathy likely due to combination of UTI with SIRS along with accelerated hypertension. Continue metoprolol 25 mg orally twice every day, continue clonidine 0.0 mg orally twice every day, discontinue hydralazine, continue losartan 100 mg once every day, continue hydrochlorothiazide 12.5 mg once every day, add amlodipine 10 mg at bedtime. Start the patient on Rocephin 1 g IV piggyback every 24 hours, urine culture, neurology evaluation appreciated. 2. UTI wrist with SIRS. Continue patient on Rocephin 1 g IV piggyback every 24 hours, monitor the patient urine culture. 3. Accelerated hypertension. Continue patient on metoprolol 25 mg orally twice every day, continue clonidine 0.1 mg orally twice every day, continue amlodipine 10 mg once every day, continue losartan 100 mg orally once every day, continue hydrochlorothiazide 12.5 mg orally once every day. Discontinue hydralazine 4. Hyperlipidemia. Patient is not taking any statin at this time since risks outweigh benefits 5. Memory loss likely vascular dementia may benefit from a PET scan as an outpatient. 6. Anxiety and depressive disorder. Stable. 7. DVT prophylaxis. Heparin 5000 units subcutaneously every 12 hours. 8. GI prophylaxis. Protonix 40 mg once every day. 9. Admit to inpatient. Estimated length of stay 2 midnights. 10. Full code. Past Medical History Past Medical History: Hypertension, Liver Disease Additional Past Medical History / Comment(s): neuropathy History of Any Multi-Drug Resistant Organisms: None Reported Past Surgical History: Orthopedic Surgery Additional Past Surgical History / Comment(s): bilateral knees Past Anesthesia/Blood Transfusion Reactions: No Reported Reaction Past Psychological History: No Psychological Hx Reported Smoking Status: Never smoker Past Alcohol Use History: None Reported Past Drug Use History: None Reported - Past Family History Mother Family Medical History: Myocardial Infarction ([place]) Additional Family Medical History / Comment(s): Pass d/t heart attack Medications and Allergies Home Medications Medication Instructions Recorded Confirmed Type Metoprolol Tartrate [Lopressor] 25 mg PO DAILY #30 tab 12/09/19 01/30/23 Rx Atorvastatin [Lipitor] 40 mg PO HS 01/30/23 01/30/23 History Losartan Potassium [Cozaar] 100 mg PO DAILY 01/30/23 01/30/23 History Metoprolol Tartrate [Lopressor] 25 mg PO DAILY 01/30/23 01/30/23 History cloNIDine HCL 0.1 mg PO BID 01/30/23 01/30/23 History hydrALAZINE HCL [Apresoline] 50 mg PO BID 01/30/23 01/30/23 History Allergies Allergy/AdvReac Type Severity Reaction Status Date / Time No Known Allergies Allergy Verified 01/30/23 17:55 Physical Exam Vitals: Vital Signs Temp Pulse Pulse Resp BP BP Pulse Ox 01/31/23 06:58 98.3 F 67 18 175/94 98 01/31/23 01:45 98.2 F 76 16 174/95 97 01/31/23 00:27 182/94 01/30/23 21:19 98.0 F 85 16 197/110 98 01/30/23 20:00 98.8 F 88 16 154/83 98 01/30/23 18:56 80 190/101 96 01/30/23 16:45 67 18 184/82 97 01/30/23 15:41 67 16 211/106 98 01/30/23 13:36 98.9 F 70 16 212/119 96 Intake and Output 01/30/23 01/31/23 01/31/23 22:59 06:59 14:59 Other: Voiding Method Toilet # Voids 1 Weight 63.503 kg Results CBC & Chem 7: 02/01/23 06:07 02/01/23 06:07 Labs: Abnormal Lab Results - Last 24 Hours (Table) 01/30/23 01/30/23 01/30/23 Range/Units 15:13 15:13 16:28 APTT 30.9 H (22.0-30.0) sec BUN 23 H (7-17) mg/dL AST 39 H (14-36) U/L Folate (4.40-31.00) ng/mL Ur Leukocyte Esterase Large H (Negative) Urine WBC 35 H (0-5) /hpf Hyaline Casts 15 H (0-2) /lpf Urine Mucus Rare H (None) /hpf 01/30/23 Range/Units 16:28 APTT (22.0-30.0) sec BUN (7-17) mg/dL AST (14-36) U/L Folate 40.00 H (4.40-31.00) ng/mL Ur Leukocyte Esterase (Negative) Urine WBC (0-5) /hpf Hyaline Casts (0-2) /lpf Urine Mucus (None) /hpf Microbiology - Last 24 Hours (Table) 01/30/23 15:13 Urine Culture - Preliminary Urine,Voided Thrombosis Risk Factor Assmnt - Choose All That Apply Any of the Below Risk Factors Present?: No Each Risk Factor Represents 3 Points: Age 75 years or older Thrombosis Risk Factor Assessment Total Risk Factor Score: 3 Thrombosis Risk Factor Assessment Level: Moderate Risk
--- NOTE | 2023-02-01 14:34 | P.PN ---
Subjective Progress Note Date: 02/01/23 HISTORY OF PRESENT ILLNESS: This is an 87-year-old -[place] female with a previous medical history significant for hypertension and hypertensive cardio vascular disease, hyperlipidemia, anxiety, depressive disorder with psychotic features, short-term memory loss likely related to vascular dementia, patient presented to the emergency department at [facility] with acute mental status changes according to the daughter the patient has been seeing a a young girl at her apartment every time she looks in the mirror, so she went and stayed with her overnight, however this become more problematic, she contacted my office and my nursing staff suggested for her to go to the ER for evaluation, she was extremely hypertensive as the patient may not be taking her medication on time, due to short-term memory loss, patient did receive her medication, she was started back on her clonidine 0.1 mg orally twice every day as well as metoprolol 25 mg orally twice every day and losartan 100 mg once every day as well as hydrochlorothiazide 12.5 mg once every day, and the she was admitted to the hospital for evaluation after she had a computed tomography scan of the brain did not show evidence of acute abnormalities, she was seen in consultation by neurology who thought that the patient is experiencing hypertensive encephalopathy and possible encephalopathy metabolic due to urinary tract in fection patient was started on IV antibiotic in the form of Rocephin and she was admitted to the hospital for evaluation and treatment was recommended to monitor the patient hospital for the next 1 or 2 days prior to her discharge. 02/01: Patient is more awake and more alert today, she denies any headache, she has no chest pain or shortness breath, she is ablating well, she has been tolerating treatment very well, her blood pressure is much better, keep on the same regimen, follow-up with the patient, follow-up with urine culture, physical therapy evaluation, likely home on Friday REVIEW OF SYSTEMS: Constitutional: No documented fever, no chills, no night sweats. No weight change. No weakness, fatigue or lethargy. No daytime sleepiness. HEENT: No headache. No blurred vision or double vision, no loss of vision. No loss of Hearing, no ringing in the ears, no dizziness. No nasal drainage or congestion. No epistaxis. No sore throat. Lungs: No shortness of breath, no cough, no sputum production. No wheezing. Reports dyspnea with activity. Cardiovascular: No chest pain, no lower extremity edema. No palpitations. No paroxysmal nocturnal dyspnea. No orthopnea. No lightheadedness or dizziness. No syncopal episodes. Abdominal: Reports no abdominal pain. No nausea, vomiting. No diarrhea. No constipation. No bloody or tarry stools reports loss of appetite. Genitourinary: No dysuria, increased frequency, urgency. No urinary retention. Musculoskeletal: No myalgias. No muscle weakness, no gait dysfunction, no frequent falls. No back pain. No neck pain. Integumentary: No wounds, no lesions. No rash or pruritus. No unusual bruising. No change in hair or nails. Neurologic: No aphasia. No facial droop. positive for change in mentation. No head injury. No headache. No paralysis. No paresthesia. Psychiatric: positive for depression. No anxiety. No mood swings, memory loss Endocrine: No abnormal blood sugars. No weight change. PHYSICAL EXAMINATION: General: 87-year-old -[place] female laying down in bed in no apparent distress. HEENT: Head is atraumatic, normocephalic, pupils were equal round reactive to light and recommendation, extraocular muscle movement were intact, sclera nonicteric, conjunctivae were pale, mucous membranes of the mouth are somewhat dry. Neck: Supple, no JVP, normal carotid upstroke bilaterally, no lymphadenopathy. Chest: Decreased breath sounds at the bases, few rhonchi, no expiratory wheezes, no chest wall tenderness, no intercostal retractions. Heart: First heart sound is normal, second heart sound is normal there is JENN 2/6located at the left sternal border. Abdomen: Soft, nontender, nondistended, positive bowel sounds. Extremities: There is no edema no calf tenderness DP +2 bilaterally. Neurologic examination: Patient is awake alert and oriented X 2, cranial nerves II-12 appear grossly intact, muscle power were 5 out of 5 in upper extremities and 5 out of 5 in bilateral lower extremities, deep tendon reflexes normal bilaterally. ASSESSMENT AND PLAN: 1. Acute metabolic and hypertensive encephalopathy likely due to combination of UTI with SIRS along with accelerated hypertension. Continue metoprolol 25 mg orally twice every day, continue clonidine 0.0 mg orally twice every day, disco ntinue hydralazine, continue losartan 100 mg once every day, continue hydrochlorothiazide 12.5 mg once every day, add amlodipine 10 mg at bedtime. Start the patient on Rocephin 1 g IV piggyback every 24 hours, urine culture, neurology evaluation appreciated. 2. UTI wrist with SIRS. Continue patient on Rocephin 1 g IV piggyback every 24 hours, monitor the patient urine culture. 3. Accelerated hypertension. Continue patient on metoprolol 25 mg orally twice every day, continue clonidine 0.1 mg orally twice every day, continue amlodipine 10 mg once every day, continue losartan 100 mg orally once every day, continue hydrochlorothiazide 12.5 mg orally once every day. Discontinue hydralazine 4. Hyperlipidemia. Patient is not taking any statin at this time since risks outweigh benefits 5. Memory loss likely vascular dementia may benefit from a PET scan as an outpatient. 6. Anxiety and depressive disorder. Stable. 7. DVT prophylaxis. Heparin 5000 units subcutaneously every 12 hours. 8. GI prophylaxis. Protonix 40 mg once every day. 9. Likely home on Friday. Objective - Vital Signs Vital signs: Vital Signs Temp 98.4 F 02/01/23 06:58 Pulse 55 L 02/01/23 06:58 Resp 16 02/01/23 08:00 BP 148/93 02/01/23 06:58 Pulse Ox 96 02/01/23 08:27 FiO2 Intake & Output 01/31/23 02/01/23 02/01/23 18:59 06:59 18:59 Intake Total 118 300 118 Balance 118 300 118 Intake: Oral 118 300 118 Other: Voiding Method Toilet Toilet # Voids 2 2 - Labs CBC & Chem 7: 02/01/23 06:07 02/01/23 06:07 Labs: Abnormal Lab Results - Last 24 Hours (Table) 02/01/23 02/01/23 Range/Units 06:07 06:07 MCH 32.1 H (27.0-32.0) pg Est GFR (CKD-EPI)AfAm 58.7 L (60.0-200.0) Est GFR (CKD-EPI)NonAf 50.6 L (60.0-200.0) BUN/Creatinine Ratio 23.70 H (12.00-20.00) Ratio Albumin/Globulin Ratio 1.48 L (1.60-3.17) g/dL Microbiology - Last 24 Hours (Table) 01/31/23 11:01 Blood Culture - Preliminary Blood No Growth after 24 hours 01/31/23 11:15 Blood Culture - Preliminary Blood No Growth after 24 hours 01/30/23 15:13 Urine Culture - Final Urine,Voided
[2023-02-01] MEDS: hydroCHLOROthiazide 12.5 MG CAP PO SCH (16:00)
[2023-02-01] MEDS: amLODIPine 10 MG TAB PO SCH (20:25)
[2023-02-01] MEDS: ATORVASTATIN 40 MG TAB PO SCH (20:25)
[2023-02-01] MEDS ORDERED: DONEPEZIL 5 MG TAB PO SCH (21:00)
[2023-02-02 07:33] VITALS: BP 120/78; PULSE 66; RESP 16; TEMP 98.6
[2023-02-02] MEDS: LOSARTAN 50 MG TAB PO SCH (09:06)
[2023-02-02] MEDS: PANTOPRAZOLE 40 MG TABLET PO SCH (09:06)
[2023-02-02] MEDS: HEPARIN SODIUM,PORCINE/PF 5,000 UNIT/0.5 ML SYRINGE SQ SCH (09:06)
[2023-02-02] MEDS: hydroCHLOROthiazide 12.5 MG CAP PO SCH (09:06)
[2023-02-02] MEDS: cloNIDine HCL 0.1 MG TAB PO SCH (09:06)
[2023-02-02] MEDS: METOPROLOL TARTRATE 25 MG TAB PO SCH (09:06)
[2023-02-02 10:53] LABS: Basophils # (A) 0.07 X 10*3/uL (0.00-0.10); Basophils % (A) 0.9 %; Eosinophils # (A) 0.13 X 10*3/uL (0.04-0.35); Eosinophils % (A) 1.7 %; HCT 41.4 % (37.2-46.3); HGB 13.5 g/dL (12.0-15.0); Immature Grans, Automated 0.3 %; Lymphocytes # (A) 2.58 X 10*3/uL (0.90-5.00); Lymphocytes % (A) 33.6 %; MCH 31.9 pg (27.0-32.0); MCHC 32.6 g/dL (32.0-37.0); MCV 97.9 fL (80.0-97.0); Mean Platelet Volume 10.2 fL (9.5-12.2); Monocytes # (A) 0.52 X 10*3/uL (0.20-1.00); Monocytes % (A) 6.8 %; NRBC Per 100 WBC 0 /100 WBCS (0.0-0.0); Neutrophils # (A) 4.36 X 10*3/uL (1.80-7.70); Neutrophils % (A) 56.7 %; Platelet Count 266 X 10*3/uL (140-440); RBC 4.23 X 10*6/uL (4.10-5.20); RDW 13.5 % (11.5-14.5); WBC 7.68 X 10*3/uL (4.50-10.00)
[2023-02-02 11:04] LABS: African American GFR (CKD) 47.5 (60.0-200.0); Albumin 4.1 g/dL (3.8-4.9); Albumin/Globulin Ratio 1.52 (1.60-3.17); Anion Gap 9.6 mmol/L (10.00-18.00); BUN/Creat Ratio 25.71 Ratio (12.00-20.00); Blood Urea Nitrogen 30.6 mg/dL (9.0-27.0); Calcium 9.4 mg/dL (8.7-10.3); Carbon Dioxide 27.9 mmol/L (20.0-27.5); Globulin 2.7 g/dL (1.6-3.3); Total Bilirubin 0.8 mg/dL (0.30-1.20); Total Protein 6.8 g/dL (6.2-8.2)
--- NOTE | 2023-02-02 11:24 | P.DS ---
Providers Date of admission: 01/30/23 17:54 Expected date of discharge: 02/02/23 Attending physician: Emily Ruiz Consults: 01/30/23 17:54 Consult Physician Routine Consulting Provider: Adrián Rodriguez Consult Reason/Comments: AMS, suspect progressive dementia vs. HTN encephalopathy Do you want consulting provider notified?: Yes Primary care physician: Emily Ruiz Hospital Course: HISTORY OF PRESENT ILLNESS: This is an 87-year-old -[place] female with a previous medical history significant for hypertension and hypertensive cardio vascular disease, hyperlipidemia, anxiety, depressive disorder with psychotic features, short-term memory loss likely related to vascular dementia, patient presented to the emergency department at [facility] with acute mental status changes according to the daughter the patient has been seeing a a young girl at her apartment every time she looks in the mirror, so she went and stayed with her overnight, however this become more problematic, she contacted my office and my nursing staff suggested for her to go to the ER for evaluation, she was extremely hypertensive as the patient may not be taking her medication on time, due to short-term memory loss, patient did receive her medication, she was started back on her clonidine 0.1 mg orally twice every day as well as metoprolol 25 mg orally twice every day and losartan 100 mg once every day as well as hydrochlorothiazide 12.5 mg once every day, and the she was admitted to the hospital for evaluation after she had a computed tomography scan of the brain did not show evidence of acute abnormalities, she was seen in consultation by neurology who thought that the patient is experiencing hypertensive encephalopathy and possible encephalopathy metabolic due to urinary tract infection patient was started on IV antibiotic in the form of Rocephin and she was admitted to the hospital for evaluation and treatment was recommended to monitor the patient hospital for the next 1 or 2 days prior to her discharge. 02/01: Patient is more awake and more alert today, she denies any headache, she has no chest pain or shortness breath, she is ablating well, she has been tolerating treatment very well, her blood pressure is much better, keep on the same regimen, follow-up with the patient, follow-up with urine culture, physical therapy evaluation, likely home on Friday 02/02: Patient is laying down in bed in no apparent distress, she is ambulating very well, I spoke with her daughter about her going home today, a follow-up with me as an outpatient next week, patient blood pressure appears to be much better, echocardiogram was done, EKG was done, patient was started on small dose of donepezil 5 mg at bedtime for a short term memory loss due to likely vascular dementia, we will continue with that, and will follow-up with the patient next week. Discharge diagnoses: 1. Acute metabolic and hypertensive encephalopathy likely due to combination of UTI with SIRS along with accelerated hypertension. 2. UTI wrist with SIRS. 3. Accelerated hypertension. 4. Hyperlipidemia. 5. Memory loss likely vascular dementia. 6. Anxiety Patient Condition at Discharge: Stable Plan - Discharge Summary Discharge Rx Participant: Yes New Discharge Prescriptions: No Action Metoprolol Tartrate [Lopressor] 25 mg PO DAILY #30 tab Atorvastatin [Lipitor] 40 mg PO HS cloNIDine HCL 0.1 mg PO BID hydrALAZINE HCL [Apresoline] 50 mg PO BID Metoprolol Tartrate [Lopressor] 25 mg PO DAILY Losartan Potassium [Cozaar] 100 mg PO DAILY Discharge Medication List Metoprolol Tartrate [Lopressor] 25 mg PO DAILY #30 tab 12/09/19 [Rx] Atorvastatin [Lipitor] 40 mg PO HS 01/30/23 [History] Losartan Potassium [Cozaar] 100 mg PO DAILY 01/30/23 [History] Metoprolol Tartrate [Lopressor] 25 mg PO DAILY 01/30/23 [History] cloNIDine HCL 0.1 mg PO BID 01/30/23 [History] hydrALAZINE HCL [Apresoline] 50 mg PO BID 01/30/23 [History] Follow up Appointment(s)/Referral(s): Emily Ruiz MD [Primary Care Provider] - 1-2 days
--- NOTE | 2023-02-02 12:14 | P.PN ---
Subjective Progress Note Date: 02/02/23 Upon seeing the patient she feels she is about the same. Also the nurse feels she is doing about the same. No change in her neurological condition. Objective - Vital Signs Vital signs: Vital Signs Temp 98.6 F 02/02/23 07:33 Pulse 66 02/02/23 07:33 Resp 16 02/02/23 08:24 BP 120/78 02/02/23 07:33 Pulse Ox 95 02/02/23 07:53 FiO2 Intake & Output 02/01/23 02/02/23 02/02/23 18:59 06:59 18:59 Intake Total 354 Balance 354 Intake: Oral 354 Other: Voiding Method Toilet Toilet # Voids 1 1 # Bowel Movements 0 - Exam GENERAL: The patient is lying in bed and is not in acute distress. NEUROLOGICAL: Higher mental function: The patient is awake, alert, oriented to self. With options she stated she was in the hospital. She stated the month is February and could not tell me year. Somewhat slow responding. Patient is following simple commands but is slow following commands. Language is limited. No neglect. Cranial nerves: The pupils are round, equal and reactive to light. Visual jensen is limited because of cooperation. EOM is limited but was able to track looking to right and left and no appreciable nystagmus. Facial sensation is normal to touch throughout. The facial strength is normal throughout. Hearing is normal bilaterally to hand rub. Tongue is midline and moved [id number] without any difficulty. No dysarthria is noted. Shoulder shrug is normal bilaterally. Motor: The strength is hard to assess individual muscles but lifting all extremities above gravity without focality. Normal tone and bulk. Cerebellum: Normal finger to nose bilaterally. Sensation: Sensation is normal to touch throughout. Reflexes (right/left): 2+ throughout except ankles are 1+. Plantars are mute bilaterally. Some of the other work-up during this hospital visit consisted of: Afebrile so far. Ammonia <9. TSH: 3.040, vitamin B12: 569, folate: 40.0. Syphilis test: Nonreactive I reviewed the chemistry panel and basic electrolyte are within normal limits. CT head is reported as No acute intracranial process. Nonspecific white matter changes, likely due to chronic microvascular disease. I personally reviewed CT and feel no acute or subacute ischemia, no hemorrhage. 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 Routine EEG is abnormal. Tobacco slowing suggestive of mild encephalopathy. Otherwise there is no focal slowing, epileptiform discharges or seizure on the EEG Carotid duplex was reported as there is antegrade flow in the vertebral artery. Images and measurements suggest less than 40% stenosis in both internal carotid arteries. - Labs CBC & Chem 7: 02/02/23 07:27 02/02/23 07:27 Labs: Abnormal Lab Results - Last 24 Hours (Table) 02/02/23 02/02/23 Range/Units 07:27 07:27 MCV 97.9 H (80.0-97.0) fL Carbon Dioxide 27.9 H (20.0-27.5) mmol/L Anion Gap 9.60 L (10.00-18.00) mmol/L BUN 30.6 H (9.0-27.0) mg/dL Est GFR (CKD-EPI)AfAm 47.5 L (60.0-200.0) Est GFR (CKD-EPI)NonAf 41.0 L (60.0-200.0) BUN/Creatinine Ratio 25.71 H (12.00-20.00) Ratio Albumin/Globulin Ratio 1.52 L (1.60-3.17) g/dL Microbiology - Last 24 Hours (Table) 01/31/23 11:01 Blood Culture - Preliminary Blood No Growth after 24 hours 01/31/23 11:15 Blood Culture - Preliminary Blood No Growth after 24 hours Assessment and Plan Assessment: This is an 87 y/o woman who presented because of confusion. She has been seen strangers in her apartment that are not there for 3 days. On presentation to hospital blood pressure 220's/110's and unsure if patient is compliant with her medication. AMS seems due to hypertensive encephalopathy and possible acute UTI. Also possibly has underlying cognitive impairement/dementia. Hypertensive emergency (blood pressure on presentation 220's/110's)--improving History of hypertension Plan: 2D echo is ordered by primary team. Q4 hour neuro checks I spoke with the patient's daughter (Yoly) via phone and stated patient has be forgetful for the past 1-2 months, forgetting her son's name and would be agitated if anyone stated that is forgetful. Recommend MRI Brain w/o but it seems patient would not lay still for it so can be considered as outpatient. Recommend neuropsych evaluation for detailed memory testing as outpatient. Daughter agreed and I started 5mg qhs for her dementia. Will defer hypertension management and rest of medical management to primary team. Upon discharge, recommend the patient to follow-up with neurologist within 1-2 weeks. Daughter stated she will attempt to have her follow-up with someone locally. The plan is discussed with her nurse. Otherwise no additional neurological work-up. Dr. Lacey will start neurology service if needed. Time with Patient: Less than 30
== END 2023-02-02 13:05 | disposition home or self-care (01) | DRG 689 ==
LOC: EC 13:14 → 4SSUR 17:54
PROVIDERS: ADMIT Internal Medicine; ATTEND Internal Medicine
DX: N39.0 Urinary tract infection, site not specified (principal); G93.41 Metabolic encephalopathy; F01.52 Vascular dementia, unspecified severity, with psychotic disturbance; F01.53 Vascular dementia, unspecified severity, with mood disturbance; F01.54 Vascular dementia, unspecified severity, with anxiety; I16.1 Hypertensive emergency; I11.9 Hypertensive heart disease without heart failure; E78.5 Hyperlipidemia, unspecified; F41.9 Anxiety disorder, unspecified; Z20.822 Contact with and (suspected) exposure to COVID-19; Z60.2 Problems related to living alone; Z79.899 Other long term (current) drug therapy; Z82.3 Family history of stroke; Z82.49 Family history of ischemic heart disease and other diseases of the circulatory system
CPT/HCPCS: 36415; 70450; 71046; 80048; 80053; 81001; 82140; 82607; 82746; 84443; 84484; 85025; 85610; 85730; 86780; 87040; 87086; 87636; 93005; 93880; 94760; 95816; 96365; 96375; 96376; 99285

== ENCOUNTER → 2023-12-15 | Outpatient (CLI) | payer MEDICARE, OTHER ==
[2023-12-15 19:12] LABS: ALT 15 U/L (8-44); AST 29 U/L (13-35); Albumin 4.2 g/dL (3.8-4.9); Albumin/Globulin Ratio 1.45 Ratio (1.60-3.17); Alkaline Phosphatase 81 U/L (41-126); BUN/Creat Ratio 19.67 Ratio (12.00-20.00); Blood Urea Nitrogen 23.6 mg/dL (9.0-27.0); Calcium 9.8 mg/dL (8.7-10.3); Carbon Dioxide 26.9 mmol/L (21.6-31.8); Chloride 105 mmol/L (96-109); Globulin 2.9 g/dL (1.6-3.3); Glucose 103 mg/dL (70-110); Sodium 146 mmol/L (135-145); Total Bilirubin 1.2 mg/dL (0.3-1.2); Total Protein 7.1 g/dL (6.2-8.2)
== END | disposition home or self-care (01) ==
LOC: LABWHC1 09:44
PROVIDERS: ATTEND Psychiatry & Neurology Neurology
DX: G62.9 Polyneuropathy, unspecified (principal); Z79.899 Other long term (current) drug therapy
CPT/HCPCS: 36415; 80053; 82306; 82607

== ENCOUNTER 2025-03-17 12:22 | Emergency (ER) | payer MEDICARE, OTHER ==
--- NOTE | 2025-03-17 13:44 | XR ---
EXAMINATION TYPE: XR chest 2V DATE OF EXAM: 03/17/2025 1:37 PM COMPARISON: 01/30/2023 CLINICAL INDICATION: Female, 89 years old with history of difficulty breathing: Shortness of breath TECHNIQUE: XR chest 2V views of the chest are obtained. FINDINGS: Scattered senescent parenchymal changes noted. Hyperinflation compatible with COPD. No evidence for infiltrate. No evidence for atelectasis. Heart size is stable. Mediastinal structures are stable and grossly unremarkable. No evidence for hilar prominence. Degenerative changes dorsal spine. IMPRESSION: 1. No evidence for acute pulmonary disease. [facility], , 03/17/2025 1:42 PM
[2025-03-17 14:01] LABS: Influenza A Not Detected (Not Detectd); Influenza B Not Detected (Not Detectd); RSV Not Detected (Not Detectd)
--- NOTE | 2025-03-17 14:03 | ED ---
General Adult HPI - General Chief complaint: Shortness of Breath Stated complaint: JOSE Time Seen by Provider: 03/17/25 12:35 Source: patient, RN notes reviewed, old records reviewed Mode of arrival: wheelchair Limitations: no limitations - History of Present Illness Initial comments: This is an 89-year-old female who presents to the emergency department stating that she has been coughing and short of breath times a week. Family states she has been wheezing. Patient herself is a poor historian but family gives most of the history. Patient denies any chest pain or palpitation. Patient denies any fever or chills. Patient states she has had a nonproductive cough. Patient denies any abdominal pain. Patient denies any swelling to the legs or calf tenderness. - Related Data Home Medications Medication Instructions Recorded Confirmed Atorvastatin [Lipitor] 40 mg PO HS 01/30/23 01/30/23 Losartan Potassium [Cozaar] 100 mg PO DAILY 01/30/23 01/30/23 Metoprolol Tartrate [Lopressor] 25 mg PO DAILY 01/30/23 01/30/23 cloNIDine HCL 0.1 mg PO BID 01/30/23 01/30/23 Previous Rx's Medication Instructions Recorded Donepezil [Aricept] 5 mg PO HS #90 tab 02/02/23 amLODIPine [Norvasc] 10 mg PO HS #90 tab 02/02/23 hydroCHLOROthiazide [Hydrodiuril] 12.5 mg PO DAILY #90 cap 02/02/23 Albuterol Inhaler [Ventolin Hfa 1 - 2 puff INHALATION Q6HR PRN #2 03/17/25 Inhaler] each Allergies Allergy/AdvReac Type Severity Reaction Status Date / Time No Known Allergies Allergy Verified 03/17/25 12:35 Review of Systems ROS Statement: Those systems with pertinent positive or pertinent negative responses have been documented in the HPI. ROS Other: All systems not noted in ROS Statement are negative. Past Medical History Past Medical History: Hypertension, Liver Disease Additional Past Medical History / Comment(s): neuropathy History of Any Multi-Drug Resistant Organisms: None Reported Past Surgical History: Orthopedic Surgery Additional Past Surgical History / Comment(s): bilateral knees Past Anesthesia/Blood Transfusion Reactions: No Reported Reaction Past Psychological History: No Psychological Hx Reported Smoking Status: Never smoker Past Alcohol Use History: None Reported Past Drug Use History: None Reported - Past Family History Mother Family Medical History: Myocardial Infarction ([place]) Additional Family Medical History / Comment(s): Pass d/t heart attack General Exam - General Exam Comments Initial Comments: GENERAL: Patient is well-developed and well-nourished. Patient is nontoxic and well- hydrated and is in no acute distress. ENT: Neck is soft and supple. No significant lymphadenopathy is noted. Oropharynx is clear. Moist mucous membranes. Neck has full range of motion without eliciting any pain. EYES: The sclera were anicteric and conjunctiva were pink and moist. Extraocular movements were intact and pupils were equal round and reactive to light. Eyelids were unremarkable. PULMONARY: Unlabored respirations. Good breath sounds bilaterally. Patient has occasional expiratory wheeze CARDIOVASCULAR: There is a regular rate and rhythm without any murmurs gallops or rubs. ABDOMEN: Soft and nontender with normal bowel sounds. SKIN: Skin is clear with no lesions or rashes and otherwise unremarkable. NEUROLOGIC: Patient is alert and oriented x3. Cranial nerves II through XII are grossly intact. Motor and sensory are also intact. Normal speech, volume and content. Symmetrical smile. MUSCULOSKELETAL: Normal extremities with adequate strength and full range of motion. No lower extremity swelling or edema. No calf tenderness. LYMPHATICS: No significant lymphadenopathy is noted PSYCHIATRIC: Normal psychiatric evaluation. Limitations: no limitations Course Vital Signs 03/17/25 03/17/25 03/17/25 12:29 14:35 14:47 Temperature 98.7 F Pulse Rate 65 66 72 Respiratory 18 Rate Blood Pressure 157/74 O2 Sat by Pulse 96 Oximetry Medical Decision Making - Medical Decision Making Was pt. sent in by a medical professional or institution (, PA, BAND RIPSAW OPERATOR, urgent care, hospital, or [facility]...) When possible be specific @ -No Did you speak to anyone other than the patient for history (EMS, parent, family, police, friend...)? What history was obtained from this source @ -No Did you review nursing and triage notes (agree or disagree)? Why? @ -I reviewed and agree with nursing and triage notes Were old charts reviewed (outside hosp., previous admission, EMS record, old EKG, old radiological studies, urgent care reports/EKG's, [facility] records)? Report findings @ -No old charts were reviewed Differential Diagnosis? @ -Influenza A, influenza B, COVID, RSV, bronchitis, pneumonia, upper respiratory infection this is not an all-inclusive list EKG interpreted by me (3pts min.). @ -As above X-rays interpreted by me (1pt min.). @ -Chest x-ray shows no acute abnormality CT interpreted by me (1pt min.). @ -None done U/S interpreted by me (1pt. min.). @ -None done What testing was considered but not performed or refused? (CT, X-rays, U/S, labs)? Why? @ -None What meds were considered but not given or refused? Why? @ -None Did you discuss the management of the patient with other professionals (professionals i.e. , PA, BAND RIPSAW OPERATOR, lab, RT, psych nurse, rn social work, supervisor [employer], teacher, pharmaceutical officer, immigration case worker)? Give summary @ -No Was smoking cessation discussed for >3mins.? @ -No Was critical care preformed (if so, how long)? @ -No Were there social determinants of health that impacted care today? How? (Homelessness, low income, unemployed, alcoholism, drug addiction, transportation, low edu. Level, literacy, decrease access to med. care, senior care, rehab)? @ -No Was there de-escalation of care discussed even if they declined (Discuss DNR or withdrawal of care, Hospice)? DNR status @ -No What co-morbidities impacted this encounter? (DM, HTN, Smoking, COPD, CAD, Cancer, CVA, ARF, Chemo, Hep., AIDS, mental health diagnosis, sleep apnea, morbid obesity)? @ -None Was patient admitted / discharged? Hospital course, mention meds given and route, prescriptions, significant lab abnormalities, going to OR and other pertinent info. @ -Patient was never in any respiratory distress. Patient did receive a breathing treatment for the slight wheeze that she had. I went back and reevaluated after the breathing treatment she had no complaints and labs and x- rays were normal. So patient will be discharged home. Undiagnosed new problem with uncertain prognosis? @ -No Drug Therapy requiring intensive monitoring for toxicity (Heparin, Nitro, Insulin, Cardizem)? @ -No Were any procedures done? @ -No Diagnosis/symptom? @ -Upper respiratory infection Acute, or Chronic, or Acute on Chronic? @ -Acute Uncomplicated (without systemic symptoms) or Complicated (systemic symptoms)? @ -Uncomplicated Side effects of treatment? @ -No Exacerbation, Progression, or Severe Exacerbation? @ -No Poses a threat to life or bodily function? How? (Chest pain, [place], [place], pneumonia, PE, COPD, DKA, ARF, appy, cholecystitis, CVA, Diverticulitis, Homicidal, Suicidal, threat to staff... and all critical care pts) @ -No - Lab Data Lab Results 03/17/25 Range/Units 12:50 Influenza Type A (PCR) Not Detected (Not Detectd) Influenza Type B (PCR) Not Detected (Not Detectd) RSV (PCR) Not Detected (Not Detectd) SARS-CoV-2 (PCR) Not Detected (Not Detectd) Disposition Clinical Impression: Upper respiratory infection, Acute bronchospasm Disposition: HOME SELF-CARE Instructions (If sedation given, give patient instructions): Upper Respiratory Infection (ED) Prescriptions: Albuterol Inhaler [Ventolin Hfa Inhaler] 1 - 2 puff INHALATION Q6HR PRN #2 each PRN Reason: Difficulty breathing Is patient prescribed a controlled substance at d/c from ED?: No Referrals: Emily Ruiz MD [Primary Care Provider] - 1-2 days Time of Disposition: 15:40
[2025-03-17] MEDS: IPRATROPIUM-ALBUTEROL 3 ML NEB INHALATION STA (14:35)
[2025-03-17 16:09] VITALS: BP 199/98; PULSE 69; RESP 95; TEMP 98.9
== END 2025-03-17 16:21 | disposition home or self-care (01) ==
LOC: EC 12:22
DX: J06.9 Acute upper respiratory infection, unspecified (principal); J98.01 Acute bronchospasm
CPT/HCPCS: 71046; 87636; 93005; 94640; 99285